=== PATIENT | female | born 1950 | race Caucasian/White ===

== ENCOUNTER → 2017-04-25 | Day surgery (SDC) | payer BC ==
[2017-04-24 16:34] VITALS: BMI 41.5
[~2017-04-25] MED LIST: PROPOFOL 0 ML ONE; PROPOFOL 200 MG/20 ML VIAL ONE
[2017-04-25 11:09] LABS: Anion Gap 11 mmol/L (10-20); BUN (Urea Nitrogen) 28 mg/dL (9.8-20.1); Calc. Creatinine Clearance 56 mL/min (70-130); Carbon Dioxide 26 mmol/L (23-31); Chloride 103 mmol/L (98-107); Estimated GFR-MDRD 34; Glucose 99 mg/dL (80-115); Potassium 4.2 mmol/L (3.5-5.1); Sodium 136 mmol/L (136-145)
--- NOTE | 2017-04-25 22:32 | ECHO ---
HISTORY: This is a 66-year-old woman with aortic regurgitation. DESCRIPTION OF PROCEDURE: The patient taken to the PACU. The patient is sedated by anesthesiology. Transesophageal probe was pl aced in the distal esophagus and stomach. Images were obtained. Transesophageal probe removed. FINDINGS: 1. There is a mild decrease in left ventricular systolic function. 2. The left ventricle is moderately dilated. 3. Left atrial enlargement. 4. The aortic valve leaflets have a mass suggestive of a vegetation noted to the leaflets. 5. Severe aortic regurgitation. 6. Mild mitral regurgitation. 7. Mild tricuspid regurgitation. 8. Atherosclerotic debris in the descending aorta. IMPRESSION: Severe aortic regurgitation with a mass noted attached aortic valve leaflets suggestive of a vegetat ion.
== END ==
LOC: SDC 07:46
PROVIDERS: ATTEND Internal Medicine Cardiovascular Disease
DX: I48.0 Paroxysmal atrial fibrillation (principal); I08.3 Combined rheumatic disorders of mitral, aortic and tricuspid valves; C85.10 Unspecified B-cell lymphoma, unspecified site; G40.89 Other seizures; D61.818 Other pancytopenia; K21.9 Gastro-esophageal reflux disease without esophagitis; I11.9 Hypertensive heart disease without heart failure; Z79.82 Long term (current) use of aspirin; Z79.899 Other long term (current) drug therapy; Z88.4 Allergy status to anesthetic agent; Z88.1 Allergy status to other antibiotic agents; Z88.0 Allergy status to penicillin; Z88.8 Allergy status to other drugs, medicaments and biological substances; Z95.828 Presence of other vascular implants and grafts; Z90.89 Acquired absence of other organs; Z98.890 Other specified postprocedural states
CPT/HCPCS: 36415; 80048; 93312; J2704

== ENCOUNTER 2017-06-24 11:58 | Outpatient (CLI) | payer BC ==
--- NOTE | 2017-06-24 13:03 | RAD ---
TWO VIEWS CHEST: 06/24/2017 PROVIDED CLINICAL HISTORY: Dyspnea. COMPARISON: 12/25/2016 FINDINGS: The cardiac silhouette remains enlarged. Right-sided implanted port is again seen in a similar posit ion. Median sternotomy changes are now seen. Prosthetic cardiac valve now demonstrated. No focal c onsolidation evident. Blunting of the right costophrenic angle persists. No evidence for pneumothor ax. IMPRESSION: Stable cardiomegaly and blunting of the right costophrenic angle. POS: [facility]
== END 2017-06-24 11:59 | disposition home or self-care (01) ==
LOC: RAD 11:58
PROVIDERS: ATTEND Internal Medicine
DX: R06.00 Dyspnea, unspecified (principal); I51.7 Cardiomegaly
CPT/HCPCS: 71046

== ENCOUNTER 2017-08-20 15:12 | Emergency (ER) | payer BC, SELFPAY ==
--- NOTE | 2017-08-20 16:27 | CT ---
CT OF HEAD NONCONTRAST: Indication: Post-traumatic injury. Pain. FINDINGS: Reference is made to 10-15-15. There is redemonstration of right frontal approach ventriculostomy with tip terminating at the left f rontal horn. Cavitary encephalomalacia left frontal lobe with interspersed calcific density is stable . There is ex vacuo dilatation within the ventricular system. No acute intracranial hemorrhage or mas s effect. Craniotomy at the chelsi frontal parietal region is again seen. Vonda hole of the left frontal parietal region remains. There is scattered hypoattenuation of the bilateral cerebral white matter. IMPRESSION: 1. No acute intracranial hemorrhage or mass effect. 2. Bilateral periventricular white matter hypoattenuating regions are present. These are progressed f rom prior exam and may relate to interval microvascular ischemic disease. 3. Additional details are discussed above. POS: [facility]
[2017-08-20 16:37] LABS: Hemoglobin 11.6 g/dL (12.0-16.0); Mean Corpuscular HGB CONC 33.9 g/dL (32.0-36.0); Mean Corpuscular Hemoglobin 33.6 pg (27.0-31.0); Mean Corpuscular Volume 99.2 fl (81.0-99.0); Mean Platelet Volume 9.1 fL (7.4-10.4); Platelet Count 67 thou/uL (130-400); RBC Distribution Width 15.1 % (11.5-14.5); Red Blood Cell (RBC) Count 3.46 mill/uL (4.20-5.40); White Blood Cell (WBC) Count 3.3 thou/uL (4.8-10.8)
[2017-08-20 17:00] LABS: Anisocytosis SLIGHT = 6-15 cells (100X) (0-5/hpf); Band 27 % (5-11); Lymphocytes 5 % (21-51); MDiff Complete? YES; Monocytes 12 % (0-10); Myelocyte 2 % (0-0); Neutrophil 51 % (42-75); PLT Morphology Comment Appears Decreased; Polychromasia SLIGHT = 2-3 cells (100X) (0-2/hpf); Reactive Lymphocytes 2 % (0-10)
== END 2017-08-20 17:07 | disposition home or self-care (01) ==
LOC: ERS 15:12
DX: S06.9X9A Unspecified intracranial injury with loss of consciousness of unspecified duration, initial encounter (principal); S16.1XXA Strain of muscle, fascia and tendon at neck level, initial encounter; D69.6 Thrombocytopenia, unspecified; M19.90 Unspecified osteoarthritis, unspecified site; K21.9 Gastro-esophageal reflux disease without esophagitis; I10 Essential (primary) hypertension; V43.52XA Car driver injured in collision with other type car in traffic accident, initial encounter
CPT/HCPCS: 36415; 70450; 85025; 93005

== ENCOUNTER 2017-12-30 09:51 | Outpatient (CLI) | payer MEDICARE, BC ==
--- NOTE | 2017-12-30 13:04 | RAD ---
TWO VIEWS CHEST: DATE: 12/30/17. PROVIDED CLINICAL HISTORY: Dyspnea. FINDINGS: Comparison 06/24/17. Cardiac and mediastinal silhouette is unchanged in appearance. Median sternotomy changes and right-sided implanted port are redemonstrated. No focal consolidation, pleural fluid, o r pneumothorax apparent. Prosthetic cardiac valve is redemonstrated. IMPRESSION: Stable radiographic appearance of the chest. POS: [facility]
== END 2017-12-30 09:52 | disposition home or self-care (01) ==
LOC: BICBD 09:51 → RAD 09:52
PROVIDERS: ATTEND Internal Medicine
DX: R06.00 Dyspnea, unspecified (principal)
CPT/HCPCS: 71046

== ENCOUNTER 2018-04-05 16:31 | Inpatient (IN) | payer MEDICARE, BC ==
[2018-04-05 17:13] LABS: #Lymphocytes 0.5 thou/uL (1.20-3.40); #Monocytes 0.3 thou/uL (0.11-0.59); #Neutrophils 4.8 thou/uL (1.40-6.50); %Basophils 0.4 % (0.0-1.0); %Eosinophils 0.5 % (0.0-10.0); %Lymphocytes 8.3 % (21.0-51.0); %Monocytes 5.4 % (0.0-10.0); %Neutrophils 85.4 % (42.0-75.0); Hemoglobin 12.4 g/dL (12.0-16.0); Mean Corpuscular HGB CONC 33.2 g/dL (32.0-36.0); Mean Corpuscular Hemoglobin 31.6 pg (27.0-31.0); Mean Corpuscular Volume 95.1 fL (78.0-98.0); Mean Platelet Volume 10.6 fL (7.4-10.4); Platelet Count 72 thou/uL (130-400); RBC Distribution Width 13.1 % (11.5-14.5); Red Blood Cell (RBC) Count 3.92 mill/uL (4.20-5.40); White Blood Cell (WBC) Count 5.6 thou/uL (4.8-10.8)
[2018-04-05] MEDS ORDERED: Magnesium 2 GM/50 ML BAG (IN WATER) ONE (17:20)
[2018-04-05 17:28] LABS: ALT (SGPT) 9 U/L (8-55); AST (SGOT) 13 U/L (5-34); Albumin 3.9 g/dL (3.4-4.8); Alkaline Phosphatase 74 U/L (40-150); Anion Gap 18 mmol/L (10-20); BUN (Urea Nitrogen) 52 mg/dL (9.8-20.1); Bilirubin, Total 0.5 mg/dL (0.2-1.2); CK (CPK) 65 U/L (29-168); Calc. Creatinine Clearance 0 mL/min (70-130); Calcium 9.1 mg/dL (7.8-10.44); Carbon Dioxide 20 mmol/L (23-31); Chloride 97 mmol/L (98-107); Estimated GFR-MDRD 22; Globulin 4.1 g/dL (2.4-3.5); Glucose 200 mg/dL (80-115); Lipase 36 U/L (8-78); Potassium 4.1 mmol/L (3.5-5.1); Sodium 131 mmol/L (136-145)
[2018-04-05] MEDS ORDERED: Digoxin 0.5 MG/2 ML AMP ONE (17:32)
[2018-04-05] MEDS ORDERED: Furosemide 40 MG/4 ML VIAL ONE (17:49)
[2018-04-05 17:57] LABS: CKMB 5.4 ng/mL (0-6.6)
--- NOTE | 2018-04-05 18:06 | RAD ---
PORTABLE CHEST: History: Flu symptoms. Sinus infection. Weakness. Comparison: 12-30-17 FINDINGS: Bilateral pleural effusions have increased in size since the prior study. There is cardiomegaly with mild vascular congestion. Bibasilar atelectasis. Mediport catheter is unchanged with post op sternoto my changes again noted. IMPRESSION: Enlarging bilateral effusions since prior exam with mild vascular congestion. Bibasilar atelectasis o r infiltrates, more prominent on the right. POS: [facility]
[2018-04-05] MEDS ORDERED: Enoxaparin Sodium 100 MG/ML SYRINGE ONE (18:56)
[2018-04-05] MEDS ORDERED: DOBUTamine 500 mg/250 ml 250 ML ONE (18:56)
[2018-04-05] MEDS ORDERED: Acetaminophen 500 MG TAB ONE (19:02)
[2018-04-05] MEDS ORDERED: Clindamycin/D5W 900 mg/50 ml Premix Bag ONE (19:23)
[2018-04-05 19:39] LABS: INR-International Normal Ratio 1.3; PTT 41.1 SEC (22.9-36.1); Prothrombin Time 15.9 SEC (12.0-14.7)
[2018-04-05] MEDS ORDERED: Amiodarone 150 MG/3 ML VIAL ONE (19:40)
[2018-04-05] MEDS ORDERED: Amiodarone 450 MG, Admixture Fee 1 EACH in Dextrose 5% in Water 250 ML IVPB SCH (20:00)
[2018-04-05 20:37] LABS: Lactic Acid 1.8 mmol/L (0.5-2.2)
[2018-04-05 22:09] LABS: Troponin I 0.371 ng/mL (< 0.028)
[2018-04-05] MEDS ORDERED: Ondansetron ODT 4 MG TAB SL PRN (23:30)
[2018-04-05] MEDS ORDERED: Ondansetron PF 4 MG/2 ML Vial IVP PRN (23:30)
[2018-04-05] MEDS: Digoxin 0.5 MG/2 ML AMP SLOW IVP SCH (23:59)
[2018-04-06 00:06] VITALS: BMI 37.1
[2018-04-06 00:22] LABS: Actual Bicarbonate (HCO3a) 21.1 mEq/L (22-28); Base Excess (BEa) -2.8 mEq/L (-2.0 to +3.0); CO2 Tension 33.8 mmHg (35.0-45.0); Calcium, Ionized 1.08 mmol/L (1.12-1.30); Carboxyhemoglobin (COHb) 1.5 gm% (0.0-3.0); Hemoglobin (Hb) 12.2 g/dL (12.0-16.0); O2 Tension (PaO2) 110.4 mmHg (> 80.0); Potassium - ABG Lab 4.37 mmol/L (3.70-5.30); pH, Arterial 7.41 (7.35-7.45)
[2018-04-06 00:23] LABS: Puncture Site RBR
[2018-04-06 01:13] LABS: Troponin I 0.526 ng/mL (< 0.028)
[2018-04-06] MEDS ORDERED: Bisacodyl 5 MG TAB PO PRN (02:52)
[2018-04-06] MEDS ORDERED: Acetaminophen 650 MG Suppository PR PRN (02:52)
[2018-04-06] MEDS ORDERED: Heparin 25,000 units/D5W 500 ML IVPB SCH (03:00)
[2018-04-06] MEDS: Heparin 10,000 UNITS/ 10 ML VIAL SLOW IVP SCH ×2 (03:38→12:55)
[2018-04-06] MEDS: Digoxin 0.5 MG/2 ML AMP SLOW IVP SCH (05:28)
[2018-04-06] MEDS: Furosemide 40 MG/4 ML VIAL SLOW IVP SCH ×2 (05:33→08:57)
[2018-04-06 05:52] LABS: #Lymphocytes 0.7 thou/uL (1.20-3.40); #Monocytes 0.5 thou/uL (0.11-0.59); #Neutrophils 3.8 thou/uL (1.40-6.50); %Basophils 0.3 % (0.0-1.0); %Eosinophils 0.7 % (0.0-10.0); %Monocytes 10.4 % (0.0-10.0); %Neutrophils 74.6 % (42.0-75.0); Hemoglobin 11.1 g/dL (12.0-16.0); Mean Corpuscular HGB CONC 32.8 g/dL (32.0-36.0); Mean Corpuscular Hemoglobin 31.2 pg (27.0-31.0); Mean Corpuscular Volume 95.3 fL (78.0-98.0); Mean Platelet Volume 10.5 fL (7.4-10.4); Platelet Count 60 thou/uL (130-400); Red Blood Cell (RBC) Count 3.56 mill/uL (4.20-5.40); White Blood Cell (WBC) Count 5.1 thou/uL (4.8-10.8)
[2018-04-06 06:07] LABS: Albumin 3.4 g/dL (3.4-4.8); Anion Gap 14 mmol/L (10-20); BUN (Urea Nitrogen) 56 mg/dL (9.8-20.1); BUN/Creatinine Ratio 27.72; Calc. Creatinine Clearance 43 mL/min (70-130); Calcium 8.7 mg/dL (7.8-10.44); Carbon Dioxide 23 mmol/L (23-31); Chloride 97 mmol/L (98-107); Digoxin 0.85 ng/mL (0.8-2.0); Estimated GFR-MDRD 25; Glucose 110 mg/dL (80-115); Magnesium 2.6 mg/dL (1.6-2.6); Phosphorus 5.6 mg/dL (2.3-4.7); Sodium 130 mmol/L (136-145)
--- NOTE | 2018-04-06 08:12 | HP ---
CHIEF COMPLAINT: Weakness and dizziness. HISTORY OF PRESENT ILLNESS: This is a 67-year-old female with past medical history of hypoglycemia, seizures, arthritis of the back, stage IV non-Hodgkin lymphoma, right breast cancer, brain tumor removal, hypertension, atrial fibrillation, presenting with shortness of breath and generalized weakness for 1 week prior to the day of admission. The patient reports having flu-like symptoms, which has been ongoing for the past 9 days. The patient stated that she went to [facility] and was discharged home on some antibiotics and the patient was diagnosed with sinusitis. The patient states that now she is coming in because she is having shortness of breath with bilateral lower extremity edema and the patient has not been feeling well. The patient stated that, in April 2016, she had a heart valve transplant and the patient has now been having irregular heart rate. Currently, the patient states that she is having severe shortness of breath, and when she moves around, her shortness of breath worsens. The patient endorses shortness of breath, bilateral lower extremity edema, and irregular heart rate. Otherwise, the patient denies any fevers, chills, nausea, vomiting, diarrhea, constipation, hematuria, dysuria, hematochezia, and melena. 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 Choe's office. The patient stated that she was not taking all her medications because she was having allergic reaction. However, Dr. Choe advised the patient on the importance of taking her medication and not being noncompliant. It seems like the patient does have some underlying noncompliance. REVIEW OF SYSTEMS: Positive for shortness of breath, generalized weakness, and bilateral lower extremity edema, otherwise as documented in the HPI, all systems were reviewed and are negative. PAST MEDICAL HISTORY: Arthritis, seizures, borderline hypoglycemia, stage IV non-Hodgkin lymphoma, right breast cancer, brain tumor removal, hypertension, and atrial fibrillation. SURGICAL HISTORY: Tumor removal from the brain in 04/1970, repeat brain surgery in 08/2009, partial thyroidectomy in 03/2008, right subclavian MediPort which was placed in 06/22/2015, biopsy of the right breast in 06/07/2015 chemotherapy and also on 06/07/2015, heart valve replacement in April of 2017. PSYCHIATRIC HISTORY: The patient has history of anxiety. SOCIAL HISTORY: The patient denies alcohol use, denies any illicit drug use, and denies any smoking history. FAMILY HISTORY: Reviewed and noncontributory to this case. ALLERGIES: AMIODARONE, AMOXICILLIN, BENADRYL, CARVEDILOL, CIPROFLOXACIN, ELIQUIS, KEPPRA, LIDOCAINE, PHENYLEPHRINE, XARELTO. CURRENT MEDICATIONS: The patient takes; 1. Topiramate 50 mg. 2. Aspirin 325 mg. 3. Lasix 40 mg. 4. Nexium. PHYSICAL EXAMINATION: VITAL SIGNS: Blood pressure is 81/61, pulse of 165, respiratory rate of 22, O2 saturation of 99 on BiPAP. GENERAL: The patient is lying in bed, very anxious, speaking in full sentences. The patient has a BiPAP on. The patient is coughing with a BiPAP on, but does not appear to be in any distress. The patient is obese. HEENT: Normocephalic, atraumatic. Pupils are equally round and reactive to light. Extraocular movements are intact. No scleral icterus. NECK: Trachea is midline. No JVD noted. No carotid bruits. No meningeal signs. Full range of motion. Mucous membranes are moist. LUNGS: The patient has clear lung sounds at the anterior lung garibay. At the posterior lung garibay, at the lower lobes bilaterally, there are some crackles that can be appreciated. CARDIAC: The patient has AFib with RVR, irregular heart rate. ABDOMEN: No peritoneal signs. Obese abdomen. Soft, nontender, nondistended. EXTREMITIES: The patient has 5/5 upper extremity strength. Good pulses in bilateral upper extremities. Lower extremities, the patient has bilateral lower extremity edema 2+ that can be appreciated and is pitting. The patient has 5/5 lower extremity strength and the patient has good pulses bilaterally. NEUROLOGIC: Cranial nerves 2 through 12 grossly intact. No neurologic deficits noted. The patient is alert and oriented x3. SKIN: Warm, dry, and intact. DIAGNOSTIC DATA: EKG shows atrial fibrillation with rapid ventricular response of 170. IMAGING STUDIES: Chest film shows bilateral pleural effusion with mild vascular congestion, which they cannot rule out infiltrates. LABORATORY DATA: WBC is 5.6, hemoglobin is 12.4, hematocrit is 37.3, platelet count is 72. PT is 15.9, INR is 1.3, PTT 41.1. ABG shows a pH of 7.4, pCO2 of 33.8, pO2 of 110. Sodium is 131, potassium is 4.1, chloride is 97, carbon dioxide of 20, anion gap of 18, BUN is 52, creatinine is 2.20, GFR is 22, and glucose 200. Lactic acid 1.8. Troponin is 0.3, 0.37, 0.5 respectively. BNP is 4215.4. ASSESSMENT AND PLAN: This is a 67-year-old female, being admitted for: 1. Shortness of breath, likely due to congestive heart failure exacerbation. At this point, we have consulted Cardiology. We have ordered an echo. We will follow up on echo. We have given the patient Lasix x1. We will continue the patient on BiPAP and we will continue to monitor the patient's oxygenation. 2. Acute on chronic kidney injury, stage 4. At this point, we have consulted Nephrology. We will follow up with Nephrology regarding their recommendations. Renal panel has been ordered. Currently, since the patient is in acute exacerbation of congestive heart failure, the patient has been given a dose of Lasix. 3. Noncompliance. The patient has been noncompliant with her medications. The patient states that she has a lot of history with allergies with all her medications. At this point, I have explained to the patient that she needs her medication and she does not have to stop taking her medication because she is not allergic to the medications. The patient has agreed somewhat to take the medications. At this point, we will continue the patient on current management. 4. Atrial fibrillation with rapid ventricular response. The patient is on amiodarone, but the patient's blood pressure is currently running low in the 70s. We are going to discontinue amiodarone and we are going to start the patient on digoxin. We will follow up with Cardiology regarding any further recommendation. We will continue the patient on aspirin and heparin. The patient takes valsartan and sacubitril. We will start the patient on this medication. However, if the patient's blood pressure is too low, we will hold the medication at that time. 5. History of hypertension. Currently, the patient is hypotensive and patient has been admitted to the ICU. We are going to continue to monitor the patient closely. If the patient's blood pressure does not respond with treatment, we are going to get a central line and we will possibly start the patient on pressors. 6. Deep venous thrombosis and gastrointestinal prophylaxis. Critical care time was about 60 minutes. Job ID: [id number]
[2018-04-06] MEDS: Famotidine/PF 20 mg/2ml Vial SLOW IVP SCH (08:49)
[2018-04-06] MEDS: Aspirin 325 MG TAB PO SCH (08:50)
[2018-04-06] MEDS: Famotidine 20 MG TAB PO SCH (08:50)
[2018-04-06] MEDS: Topiramate 100 MG TAB PO SCH ×3 (08:51→21:52)
[2018-04-06] MEDS ORDERED: Aspirin 325 MG TAB PO SCH (09:00)
[2018-04-06] MEDS ORDERED: Sacubitril 24.5 MG/Valsartan 25.5 MG TABLET PO SCH (09:00)
[2018-04-06] MEDS: Acetaminophen 325 MG TAB PO PRN (09:03)
--- NOTE | 2018-04-06 10:31 | CON ---
DATE OF CONSULTATION: HISTORY OF PRESENT ILLNESS: She is a 67-year-old female, who presented to the hospital with shortness of breath. She now states that she has seen different doctors in the office including a duck operator and roofing sales representative, had flu-like symptoms for almost two weeks, cough, congestion followed by shortness of breath, lower extremity swelling. She can barely walk 50 feet without getting markedly dyspneic, never smoke, no prior history of TB, pneumonia, or bronchial asthma. She had history of bilateral pleural effusion, for which a thoracentesis to be done at least twice, the last one in April of this year in [place], where she had apparently an aortic valve replaced. PAST MEDICAL HISTORY: Pertinent for non-Hodgkin's lymphoma, history of hypertension, history of atrial fibrillation, history of congestive heart failure, history of apparently seizure disorder, and arthritis. PAST SURGICAL HISTORY: She has had craniotomy twice for a brain tumor, thyroid surgery, MediPort, breast biopsy, aortic valve surgery in 2018. SOCIAL HISTORY: Alcohol, none. Tobacco none. Unremarkable. FAMILY HISTORY: Unremarkable. MEDICATIONS: List of medicine from home includes; 1. Entresto one a day. 2. Aspirin 325. 3. Zonisamide 400. 4. Topiramate 100. 5. Lasix 40. 6. Nexium. ALLERGIES: MULTIPLE MEDICATIONS INCLUDING PENICILLIN, AMOXICILLIN, AMIODARONE, CIPRO, COREG, KEPPRA, LITHIUM, AND XARELTO. PHYSICAL EXAMINATION: GENERAL: On examination, she is awake, alert, and responsive. VITAL SIGNS: She was on non-invasive ventilation, which I removed. She is much better. Sats are 96% on 4 L, pulse 80, blood pressure 100/80. CHEST: Decreased breath sounds bilaterally, right greater than left. CARDIAC: Normal S1 and S2. No gallops. ABDOMEN: Soft. No masses. EXTREMITIES: Trace edema. NEUROLOGIC: She is awake, alert, and responsive. LABORATORY DATA: PO2 is 110, pCO2 of . White count 5000, H and H are 11 and 33, and platelet count is 60,000. IMPRESSION: 1. Bilateral pleural effusion, congestive heart failure. 2. Recent aortic valve surgery. 3. Severe thrombocytopenia. 4. History of lymphoma. 5. Multiple allergies. PLAN: Awaiting input from Cardiology. I see no sign of infection at this stage. PT supportive care. So far, all cultures are negative. This consultation note 70 minutes, of which 50% direct patient care. Job ID: [id number]
--- NOTE | 2018-04-06 16:42 | PDOC.PN ---
- Subjective Encounter Start Date: 04/06/18 Encounter Start Time: 09:20 Pt seen for followup re: CHF exacerbation. Denies chest pain. - Objective Resuscitation Status - Order Detail: 04/06/18 02:52 Resuscitation Status Routine Resuscitation Status: FULL: Full Resuscitation MAR Reviewed: Yes Vital Signs & Weight: Vital Signs (12 hours) Temp Pulse Resp BP Pulse Ox 04/06/18 15:49 96.7 F L 109 H 29 H 92/66 97 04/06/18 11:20 96.7 F L 108 H 27 H 120/70 96 04/06/18 10:21 93 L 04/06/18 08:00 94 L 04/06/18 07:28 96.8 F L 122 H 31 H 101/63 97 04/06/18 05:28 121 H Weight Weight 216 lb 12.8 oz I&O: 04/05/18 04/06/18 04/07/18 06:59 06:59 06:59 Intake Total 18 Output Total 225 Balance -207 Result Diagrams: 04/06/18 05:16 04/06/18 05:16 EKG Reviewed by me: Yes (Tele: NSR) Phys Exam - Physical Examination Obese HEENT: moist MMs, sclera anicteric, oral pharynx no lesions, 2+ tonsils Neck: no nodes, supple, full ROM JVD Hang crackles Cardiovascular: RRR, no rub S1, S2 Gastrointestinal: soft, non-tender, no distention, positive bowel sounds Neurological: moves all 4 limbs Psychiatric: normal affect, A&O x 3 Dx/Plan (1) Acute on chronic diastolic heart failure Code(s): I50.33 - ACUTE ON CHRONIC DIASTOLIC (CONGESTIVE) HEART FAILURE Status : Acute Comment: await 2D echo, continue IV furosemide (2) Acute worsening of stage 3 chronic kidney disease Code(s): N18.3 - CHRONIC KIDNEY DISEASE, STAGE 3 (MODERATE) Status: Acute Comment: follow creatinine, lytes (3) Hyponatremia Code(s): E87.1 - HYPO-OSMOLALITY AND HYPONATREMIA Status: Acute Comment: mild, likely asymptomatic (4) Thrombocytopenia Code(s): D69.6 - THROMBOCYTOPENIA, UNSPECIFIED Status: Chronic Comment: follow platelet counts - Plan * . Review of Systems - Review of Systems Constitutional: negative: fever, chills, sweats, weakness, malaise Respiratory: Shortness of Breath, SOB with Excertion. negative: Cough, Pleuritic Pain, Wheezing Cardiovascular: orthopnea. negative: chest pain, palpitations, paroxysmal nocturnal dyspnea, edema, light headedness Gastrointestinal: negative: Nausea, Vomiting, Abdominal Pain, Diarrhea, Constipation, Melena, Hematochezia Genitourinary: negative: Dysuria, Frequency, Incontinence, Hematuria, Retention Skin: negative: Rash, Lesions, Adis, Bruising - Medications/Allergies Allergies/Adverse Reactions: Allergies Allergy/AdvReac Type Severity Reaction Status Date / Time amiodarone Allergy Verified 04/06/18 00:35 amitriptyline [From Elavil] Allergy "MAKES ME Verified 04/06/18 00:35 SWELL" amoxicillin Allergy Rash Verified 04/06/18 00:35 apixaban [From Eliquis] Allergy Verified 04/06/18 00:35 carvedilol [From Coreg] Allergy Verified 04/06/18 00:35 ciprofloxacin Allergy seizure Verified 04/06/18 00:35 levetiracetam [From Keppra] Allergy Verified 04/06/18 00:35 lidocaine Allergy strokelike Verified 04/06/18 00:35 symptom lithium Allergy "MAKES ME Verified 04/06/18 00:35 SWELL" Penicillins Allergy Rash Verified 04/06/18 00:35 phenylephrine Allergy strokelike Verified 04/06/18 00:35 symptom rivaroxaban [From Xarelto] Allergy Verified 04/06/18 00:35 diphenhydramine HCl AdvReac severe Verified 04/06/18 00:35 [From Benadryl] headache/code green Medications: Current Medications Acetaminophen (Tylenol) 650 mg PO Q4H PRN PRN Reason: Headache/Fever/Mild Pain (1-3) Last Admin: 04/06/18 09:03 Dose: 650 mg Acetaminophen (Tylenol) 650 mg MD Q4H PRN PRN Reason: Headache/Fever/Mild Pain (1-3) Aspirin (Aspirin) 325 mg PO DAILY [facility] Last Admin: 04/06/18 08:50 Dose: 325 mg Bisacodyl (Dulcolax) 10 mg PO DAILYPRN PRN PRN Reason: Constipation Famotidine (Pepcid) 20 mg SLOW IVP QAM [facility] Last Admin: 04/06/18 08:49 Dose: Not Given Famotidine (Pepcid) 20 mg PO QAM [facility] Last Admin: 04/06/18 08:50 Dose: 20 mg Guaifenesin/Dextromethorphan (Robitussin Dm) 15 ml PO Q4H PRN PRN Reason: Cough Senna/Docusate Sodium (Senokot S) 2 tab PO BID PRN PRN Reason: Constipation Sodium Chloride (Flush - Normal Saline) 10 ml IVF Q12HR [facility] Last Admin: 04/06/18 08:51 Dose: 10 ml Sodium Chloride (Flush - Normal Saline) 10 ml IVF PRN PRN PRN Reason: Saline Flush Topiramate (Topamax) 100 mg PO TID [facility] Last Admin: 04/06/18 14:36 Dose: 100 mg Zonisamide (Zonegran) 400 mg PO HS [facility]
--- NOTE | 2018-04-06 20:29 | CON ---
DATE OF CONSULTATION: NEPHROLOGY CONSULTATION REASON FOR CONSULTATION: Elevated creatinine. HISTORY OF PRESENT ILLNESS: This is a 67-year-old female with a past medical history significant for hypertension, who presented to the hospital with weakness and dizziness. The patient's creatinine was 2.2 and improved to 2.0. Creatinine was 1.2 in December. The patient has congestive heart failure and history of non-Hodgkin lymphoma. The patient denies no headache, numbness, tingling or weakness. Denies any nausea, vomiting, or chest pain. The patient is making urine. PAST MEDICAL HISTORY: Arthritis, seizures, hypocalcemia, stage IV non-Hodgkin lymphoma, right breast cancer, brain tumor removal, atrial fibrillation, brain surgery, thyroidectomy, subclavian Mediport, biopsy of the right breast, chemotherapy, and aortic valve replacement. SOCIAL: No alcohol or drug use. FAMILY HISTORY: Negative for ESRD. ALLERGIES: REVIEWED MEDICATIONS: Home medications list reviewed. REVIEW OF SYSTEMS: Fifteen-point review of systems was performed and negative except for positives noted above. NECK: No swelling or lumps. NOSE: No epistaxis or discharge. EYES: No diplopia or pain. MUSCULOSKELETAL: No joint pain. NEUROPSYCHIATRIC SYSTEMS: No suicidal ideation. No ideation. SKIN: Denies any rash or ulcer. CONSTITUTIONAL: No fever or chills. OBJECTIVE: GENERAL: The patient is awake, alert, in no acute distress. VITAL SIGNS: Afebrile, pulse 108, breathing 16, blood pressure 120/70. GENERAL APPEARANCE AND MENTAL STATUS: Fair. HEAD/NECK: Normocephalic. Atraumatic. EYES: EOMI. No deformity. EARS: Clear. No ulcers. NOSE: Intact. No lesions. MOUTH: Clear. No discharge. THROAT: Clear. No exudate. LUNGS: Clear. No crackles. CARDIAC: S1, S2. No rub. ABDOMEN: Benign. Bowel sounds positive. GENITALIA/RECTUM: Fernando absent. BACK/EXTREMITIES: Edema 0+. NEUROLOGICAL: Alert and motor intact. LABORATORY DATA: Labs shows creatinine 2.0. ASSESSMENT AND PLAN: 1. Acute kidney injury with chronic kidney disease, improved. 2. Hypertension, stable. 3. Anemia, stable. 4. Chronic kidney disease due to hypertension as well as acute kidney injury, true congestive heart failure. No indication for dialysis. Job ID: [id number] [facility]
[2018-04-06] MEDS: Zonisamide 100 MG CAP PO SCH (21:52)
--- NOTE | 2018-04-06 23:32 | CON ---
DATE OF CONSULTATION: HISTORY OF PRESENT ILLNESS: Juan Ramsey is a 67-year-old white female with a complicated past medical history. She has been cared for in the past by Dr. Zen Bird and Dr. Boubacar Choe with Dr. Choe wishing to sever the relationship due to patient's noncompliance with her medications. She has had atrial fibrillation in the past, was on amiodarone several years ago. Most recently in April 2017, she underwent aortic valve replacement at [facility] in [place] for severe aortic insufficiency. She does not think that there were any bypasses performed. She has not been on amiodarone since way before her aortic valve replacement. She states that she stopped taking it due to her joints hurting. At the present time, she is taking Entresto and furosemide. She now presents complaining of severe shortness of breath, which is increased with any activity. She denies any significant chest pain. She also has had significant peripheral edema over the last several weeks. PAST MEDICAL HISTORY: Remarkable for stage IV non-Hodgkin's lymphoma, right breast cancer, brain tumor removal, hypertension, and seizures. 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 MEDICATIONS: At home include, 1. Entresto 24/26 b.i.d. 2. Topiramate 100 mg t.i.d. 3. Zonisamide 400 at bedtime. 4. Aspirin 325 daily. 5. Vibramycin 100 mg b.i.d. 6. Nexium daily. 7. Furosemide 40 mg daily. ALLERGIES: AMIODARONE, AMITRIPTYLINE, AMOXICILLIN, ELIQUIS, CARVEDILOL, CIPROFLOXACIN, KEPPRA, LIDOCAINE, LITHIUM, PENICILLIN, PHENYLEPHRINE, XARELTO, BENADRYL. SOCIAL HISTORY: She does not smoke or drink. FAMILY HISTORY: Negative for coronary artery disease. REVIEW OF SYSTEMS: 12-point review of systems unremarkable except as noted above. PHYSICAL EXAMINATION: VITAL SIGNS: Blood pressure 92/66, pulse of 109. HEENT: PERRL. NECK: Supple. CHEST: Reveals decreased breath sounds at the bases and some crackles in the mid lung garibay. CARDIOVASCULAR: S1 and S2 normal without any S3 or S4. There is a 1/6 systolic murmur. ABDOMEN: Obese. Normal bowel sounds. No tenderness. EXTREMITIES: Revealed 2+ pretibial edema. NEUROLOGIC: Grossly intact. SKIN: Warm and dry. LABORATORY DATA: EKG reveals atrial fibrillation with rapid ventricular response of 149 per minute and poor R-wave progression in V1 to V3. Hemoglobin 11.1, hematocrit 32.9, white count 5100, platelets 60,000. PH 7.41, pCO2 of 33.8, PO2 of 110.4. Sodium 130, potassium 4.0, chloride 97, carbon dioxide 23, BUN 56, creatinine 2.02 (creatinine was 1.08 in October 2017). Troponin I up to 0.526. BNP 4215.4. TSH is normal. IMPRESSION: 1. Atrial fibrillation with fast ventricular response with rate of 149 per minutes upon arrival. 2. Unknown left ventricular function at this time after aortic valve replacement. 3. Status post bioprosthetic aortic valve replacement. 4. History of resection of brain tumor x2. 5. Stage IV non-Hodgkin's lymphoma. 6. Right breast cancer. 7. Hypertension. 8. Atrial fibrillation at this time with fast ventricular response. 9. History of seizures. 10. Anxiety. 11. Thrombocytopenia. PLAN: Long-term anticoagulation probably is not indicated in this lady with brain surgery x2 and thrombocytopenia. Platelet count will need to be watched closely. I feel that her best option will be rate control and she will be started on digoxin and I agree with this approach. With her worsening renal function, Entresto will be discontinued at this time. Echocardiogram will be performed to reassess left ventricular function. Her renal function needs to be watched closely. Job ID: [id number] [facility]
[2018-04-07] MEDS: Acetaminophen 325 MG TAB PO PRN ×2 (00:24→16:28)
[2018-04-07] MEDS: Calcium Carbonate 500 MG ChewTAB PO PRN (03:34)
[2018-04-07 05:00] LABS: #Lymphocytes 0.4 thou/uL (1.20-3.40); #Monocytes 0.5 thou/uL (0.11-0.59); #Neutrophils 4.9 thou/uL (1.40-6.50); %Basophils 0.1 % (0.0-1.0); %Eosinophils 0.6 % (0.0-10.0); %Lymphocytes 6.6 % (21.0-51.0); %Monocytes 8.8 % (0.0-10.0); %Neutrophils 83.9 % (42.0-75.0); Hemoglobin 11.8 g/dL (12.0-16.0); Mean Corpuscular HGB CONC 32.7 g/dL (32.0-36.0); Mean Corpuscular Hemoglobin 31.3 pg (27.0-31.0); Mean Corpuscular Volume 95.7 fL (78.0-98.0); Mean Platelet Volume 9.4 fL (7.4-10.4); Platelet Count 56 thou/uL (130-400); RBC Distribution Width 13.3 % (11.5-14.5); Red Blood Cell (RBC) Count 3.78 mill/uL (4.20-5.40); White Blood Cell (WBC) Count 5.9 thou/uL (4.8-10.8)
[2018-04-07] MEDS: Famotidine 20 MG TAB PO SCH (06:05)
--- NOTE | 2018-04-07 08:39 | RAD ---
CHEST ONE VIEW: History: CHF Comparison: 04-05-18 FINDINGS: There are layering effusions. [id number] is in similar position. Multiple midline sternotomy wir es. Mild atelectasis. No pneumothorax. Low grade edema. IMPRESSION: Similar exam of the chest. POS: [facility]
[2018-04-07] MEDS: Topiramate 100 MG TAB PO SCH ×3 (10:16→21:48)
[2018-04-07] MEDS: Aspirin 325 MG TAB PO SCH (10:16)
[2018-04-07] MEDS: Famotidine/PF 20 mg/2ml Vial SLOW IVP SCH ×2 (10:16→10:21)
[2018-04-07 11:41] LABS: Anion Gap 17 mmol/L (10-20); BUN (Urea Nitrogen) 48 mg/dL (9.8-20.1); Calc. Creatinine Clearance 49 mL/min (70-130); Calcium 8.7 mg/dL (7.8-10.44); Carbon Dioxide 20 mmol/L (23-31); Chloride 101 mmol/L (98-107); Estimated GFR-MDRD 30; Glucose 118 mg/dL (80-115); Potassium 4.4 mmol/L (3.5-5.1); Sodium 134 mmol/L (136-145)
--- NOTE | 2018-04-07 11:52 | PRG ---
DATE OF SERVICE: 04/07/2018 SUBJECTIVE: A 67-year-old female, being seen for acute kidney injury. The patient denies any nausea, vomiting, or chest pain. OBJECTIVE: CONSTITUTIONAL: The patient is awake and alert. VITAL SIGNS: Afebrile, pulse 102, breathing 16, and blood pressure GENERAL APPEARANCE AND MENTAL STATUS: Fair. HEAD/NECK: Normocephalic. Atraumatic. EYES: EOMI. No deformity. EARS: Clear. No ulcers. NOSE: Intact. No lesions. MOUTH: Clear. No discharge. THROAT: Clear. No exudate. LUNGS: Clear. No crackles. CARDIAC: S1, S2. No rub. ABDOMEN: Benign. Bowel sounds positive. GENITALIA/RECTUM: Fernando absent. BACK/EXTREMITIES: Edema 0+. NEUROLOGICAL: Alert and motor intact. SKIN: LYMPHATICS: LABORATORY DATA: Labs show hemoglobin 11.2. Creatinine is pending. ASSESSMENT AND PLAN: 1. Acute kidney injury, follow creatinine. 2. Hypertension, stable. 3. Anemia, stable. 4. Medications based on GFR as appropriate. Job ID: [id number]
[2018-04-07] MEDS: Senokot S 8.6-50 MG TAB PO PRN (12:20)
--- NOTE | 2018-04-07 14:12 | EKG ---
Test Reason : Blood Pressure : / mmHG Vent. Rate : 170 BPM Atrial Rate : 159 BPM P-R Int : 000 ms QRS Dur : 080 ms QT Int : 262 ms P-R-T Axes : 000 031 076 degrees QTc Int : 440 ms Atrial fibrillation with rapid ventricular response Anteroseptal infarct , age undetermined Abnormal ECG Confirmed by LORENA COURTNEY DO ([id number]), video news editor SHARON ZARCO ([id number]) on 04/07/2018 2:11:49 PM Referred By: Confirmed By:LORENA COURTNEY DO
--- NOTE | 2018-04-07 14:16 | EKG ---
Test Reason : Blood Pressure : / mmHG Vent. Rate : 149 BPM Atrial Rate : 111 BPM P-R Int : 000 ms QRS Dur : 080 ms QT Int : 296 ms P-R-T Axes : 000 016 094 degrees QTc Int : 466 ms Atrial fibrillation with rapid ventricular response Anterolateral infarct , age undetermined Abnormal ECG Confirmed by ELISA ALEXANDER, TIO ([id number]), editor greeting card SHARON ZARCO ([id number]) on 04/07/2018 2:15:45 PM Referred By: Confirmed By:TIO PÉREZ MD
[2018-04-07] MEDS ORDERED: Furosemide 40 MG/4 ML VIAL SLOW IVP SCH (15:15)
--- NOTE | 2018-04-07 17:05 | PRG ---
DATE OF SERVICE: 04/07/2018 SERVICE: Pulmonary Medicine. INTERVAL HISTORY: The patient is doing fine from respiratory standpoint. She is breathing comfortably today. She did not require the use of BiPAP last night. Blood pressures have been marginal, but her heart rate is still elevated. There has been no interval change to her condition. PHYSICAL EXAMINATION: VITAL SIGNS: Afebrile, pulse 130, blood pressure 118/88, respirations 18, and saturation 98% on 2 L nasal cannula. GENERAL: The patient is awake and alert, in no apparent distress. LUNGS: Excellent air entry. No prolonged expiratory phase is present. Crackles are present throughout bilateral lung garibay. HEART: Normal rate and regular. ABDOMEN: Soft, nontender, and nondistended. Bowel sounds are positive. MUSCULOSKELETAL: No cyanosis or clubbing. There is 2+ pitting in the bilateral lower extremities. NEUROLOGIC: Grossly nonfocal. LABORATORY DATA: WBC 5.9, hemoglobin 11.8, platelets 56,000. INR 1.3. pH 7.41, pCO2 of 34, pO2 of 110 on FiO2 of 28% at that time. Creatinine is downtrending to 1.72, BUN 48. Basic metabolic profile is otherwise unremarkable. TSH 0.9, troponin 0.5. BNP 4000, which is in historic high. IMAGING STUDIES: Chest x-ray demonstrates layering bilateral pleural effusions. Port-a-cath is in good position. Low lung volumes accentuate interstitial markings. ASSESSMENT: 1. Acute hypoxic respiratory failure, resolved. 2. Atrial fibrillation with rapid ventricular response. 3. Acute on chronic diastolic heart failure. 4. History of lymphoma. DISCUSSION AND PLAN: We will continue to diurese the patient's euvolemia while we work on getting her rate controlled. At this point, she is stable for transition out of the ICU to the telemetry unit. Pulmonary/Critical Care will continue to follow along for the time being. Job ID: [id number]
--- NOTE | 2018-04-07 18:14 | PDOC.PN ---
- Subjective Encounter Start Date: 04/07/18 Encounter Start Time: 11:40 Pt seen for followup re: CHF exacerbation. Feels better. - Objective Resuscitation Status - Order Detail: 04/06/18 02:52 Resuscitation Status Routine Resuscitation Status: FULL: Full Resuscitation MAR Reviewed: Yes Vital Signs & Weight: Vital Signs (12 hours) Temp Pulse Resp BP Pulse Ox 04/07/18 15:29 98.0 F 108 H 20 110/81 96 04/07/18 11:05 97.9 F 130 H 18 118/88 98 04/07/18 08:00 96 04/07/18 07:35 98.4 F 102 H 18 134/70 96 04/07/18 06:28 97 Weight Weight 211 lb 10.3 oz I&O: 04/06/18 04/07/18 04/08/18 06:59 06:59 06:59 Intake Total 18 1200 750 Output Total 225 1500 850 Balance -207 -300 -100 Result Diagrams: 04/08/18 05:11 04/08/18 05:11 Additional Labs: Accuchecks 04/06/18 23:28 POC Glucose 108 EKG Reviewed by me: Yes (Tele: broderick hamilton with [facility]) Phys Exam - Physical Examination Obese HEENT: moist MMs, sclera anicteric, oral pharynx no lesions, 2+ tonsils Neck: no nodes, no JVD, supple, full ROM Hang crackles Cardiovascular: irregular S1, S2, tachy Gastrointestinal: soft, non-tender, no distention, positive bowel sounds Musculoskeletal: edema present Neurological: moves all 4 limbs Psychiatric: normal affect, A&O x 3 Dx/Plan (1) Acute systolic CHF (congestive heart failure), NYHA class 4 Code(s): I50.21 - ACUTE SYSTOLIC (CONGESTIVE) HEART FAILURE Status: Acute Comment: continue IV furosemide. EF 15-20%. (2) Acute worsening of stage 3 chronic kidney disease Code(s): N18.3 - CHRONIC KIDNEY DISEASE, STAGE 3 (MODERATE) Status: Acute Comment: creatinine improved to 1.72 today (3) Hyponatremia Code(s): E87.1 - HYPO-OSMOLALITY AND HYPONATREMIA Status: Acute Comment: mild (4) Thrombocytopenia Code(s): D69.6 - THROMBOCYTOPENIA, UNSPECIFIED Status: Chronic Comment: follow platelet counts (5) Acute on chronic diastolic heart failure Code(s): I50.33 - ACUTE ON CHRONIC DIASTOLIC (CONGESTIVE) HEART FAILURE Status : Ruled-out - Plan * . Review of Systems - Review of Systems Constitutional: weakness. negative: fever, chills, sweats, malaise Respiratory: SOB with Excertion. negative: Cough, Shortness of Breath, Pleuritic Pain, Wheezing Cardiovascular: negative: chest pain, palpitations, orthopnea, paroxysmal nocturnal dyspnea, edema, light headedness Gastrointestinal: negative: Nausea, Vomiting, Abdominal Pain, Diarrhea, Constipation, Melena, Hematochezia Genitourinary: negative: Dysuria, Frequency, Incontinence, Hematuria, Retention Skin: negative: Rash, Lesions, Adis, Bruising - Medications/Allergies Allergies/Adverse Reactions: Allergies Allergy/AdvReac Type Severity Reaction Status Date / Time amiodarone Allergy Verified 04/06/18 00:35 amitriptyline [From Elavil] Allergy "MAKES ME Verified 04/06/18 00:35 SWELL" amoxicillin Allergy Rash Verified 04/06/18 00:35 apixaban [From Eliquis] Allergy Verified 04/06/18 00:35 carvedilol [From Coreg] Allergy Verified 04/06/18 00:35 ciprofloxacin Allergy seizure Verified 04/06/18 00:35 levetiracetam [From Keppra] Allergy Verified 04/06/18 00:35 lidocaine Allergy strokelike Verified 04/06/18 00:35 symptom lithium Allergy "MAKES ME Verified 04/06/18 00:35 SWELL" Penicillins Allergy Rash Verified 04/06/18 00:35 phenylephrine Allergy strokelike Verified 04/06/18 00:35 symptom rivaroxaban [From Xarelto] Allergy Verified 04/06/18 00:35 diphenhydramine HCl AdvReac severe Verified 04/06/18 00:35 [From Benadryl] headache/code green Medications: Current Medications Acetaminophen (Tylenol) 650 mg PO Q4H PRN PRN Reason: Headache/Fever/Mild Pain (1-3) Last Admin: 04/07/18 16:28 Dose: 650 mg Acetaminophen (Tylenol) 650 mg IN Q4H PRN PRN Reason: Headache/Fever/Mild Pain (1-3) Aspirin (Aspirin) 325 mg PO DAILY [facility] Last Admin: 04/07/18 10:16 Dose: 325 mg Bisacodyl (Dulcolax) 10 mg PO DAILYPRN PRN PRN Reason: Constipation Calcium Carbonate (Tums) 1,000 mg PO Q4H PRN PRN Reason: Heartburn or Indigestion Last Admin: 04/07/18 03:34 Dose: 1,000 mg Furosemide (Lasix) 40 mg SLOW IVP 0600 [facility] Guaifenesin/Dextromethorphan (Robitussin Dm) 15 ml PO Q4H PRN PRN Reason: Cough Senna/Docusate Sodium (Senokot S) 2 tab PO BID PRN PRN Reason: Constipation Last Admin: 04/07/18 12:20 Dose: 2 tab Sodium Chloride (Flush - Normal Saline) 10 ml IVF Q12HR [facility] Last Admin: 04/07/18 10:19 Dose: 10 ml Sodium Chloride (Flush - Normal Saline) 10 ml IVF PRN PRN PRN Reason: Saline Flush Topiramate (Topamax) 100 mg PO TID [facility] Last Admin: 04/07/18 16:16 Dose: 100 mg Zonisamide (Zonegran) 400 mg PO HS [facility] Last Admin: 04/06/18 21:52 Dose: 400 mg
[2018-04-07] MEDS: Ondansetron ODT 4 MG TAB PO PRN (20:46)
[2018-04-07] MEDS: Zonisamide 100 MG CAP PO SCH (21:48)
[2018-04-08] MEDS: Ondansetron ODT 4 MG TAB PO PRN ×3 (02:52→18:31)
[2018-04-08] MEDS: Acetaminophen 325 MG TAB PO PRN ×3 (04:26→18:31)
[2018-04-08 05:48] LABS: Anion Gap 10 mmol/L (10-20); BUN (Urea Nitrogen) 40 mg/dL (9.8-20.1); Calc. Creatinine Clearance 61 mL/min (70-130); Calcium 8.6 mg/dL (7.8-10.44); Carbon Dioxide 29 mmol/L (23-31); Chloride 101 mmol/L (98-107); Estimated GFR-MDRD 38; Glucose 118 mg/dL (80-115); Potassium 4.2 mmol/L (3.5-5.1); Sodium 136 mmol/L (136-145)
[2018-04-08 05:49] LABS: Digoxin 0.49 ng/mL (0.8-2.0)
[2018-04-08 06:01] LABS: Hemoglobin 11.6 g/dL (12.0-16.0); Lymphocytes 3 % (21-51); MDiff Complete? YES; Mean Corpuscular HGB CONC 31.9 g/dL (32.0-36.0); Mean Corpuscular Hemoglobin 31.1 pg (27.0-31.0); Mean Corpuscular Volume 97.3 fL (78.0-98.0); Mean Platelet Volume 9.7 fL (7.4-10.4); Neutrophil 97 % (42-75); PLT Morphology Comment Appears Decreased; Platelet Count 45 thou/uL (130-400); RBC Distribution Width 13.4 % (11.5-14.5); RBC Morphology Normal; Red Blood Cell (RBC) Count 3.73 mill/uL (4.20-5.40)
[2018-04-08] MEDS: Furosemide 40 MG/4 ML VIAL SLOW IVP SCH (06:26)
[2018-04-08] MEDS: Aspirin 325 MG TAB PO SCH (10:08)
[2018-04-08] MEDS: Digoxin 0.125 MG TAB PO SCH (10:08)
[2018-04-08] MEDS: Topiramate 100 MG TAB PO SCH ×3 (10:09→20:43)
--- NOTE | 2018-04-08 10:36 | PRG ---
DATE OF SERVICE: 04/08/2018 SUBJECTIVE: A 67-year-old female, being seen for acute kidney injury. The patient denies any nausea, vomiting, or chest pain. OBJECTIVE: CONSTITUTIONAL: The patient is awake and alert. VITAL SIGNS: Afebrile, pulse 76, breathing 16, blood pressure 96/69. GENERAL APPEARANCE AND MENTAL STATUS: Fair. HEAD/NECK: Normocephalic. Atraumatic. EYES: EOMI. No deformity. EARS: Clear. No ulcers. NOSE: Intact. No lesions. MOUTH: Clear. No discharge. THROAT: Clear. No exudate. LUNGS: Clear. No crackles. CARDIAC: S1, S2. No rub. ABDOMEN: Benign. Bowel sounds positive. GENITALIA/RECTUM: Fernando absent. BACK/EXTREMITIES: Edema 0+. NEUROLOGICAL: Alert and motor intact. SKIN: LYMPHATICS: LABORATORY DATA: Labs show hemoglobin 11.6. Creatinine is 1.4. ASSESSMENT AND PLAN: 1. Acute kidney injury, resolved. 2. Hypertension, stable. 3. Anemia, stable. 4. I will sign off on this patient, please reconsult as needed. Job ID: [id number]
--- NOTE | 2018-04-08 12:20 | PRG ---
DATE OF SERVICE: 04/08/2018 SERVICE: Pulmonary Medicine. INTERVAL HISTORY: The patient is breathing better. She also has improving strength. She denies any chest pain, fevers, or chills. Otherwise, there has been no interval change to her condition. OBJECTIVE: VITAL SIGNS: Afebrile currently. Pulse 116, blood pressure 104/85, respirations 18, and saturation 97% on 3 L nasal cannula. GENERAL: The patient is awake, alert, in no apparent distress. LUNGS: Decent air entry. No prolonged expiratory phase or wheezing is appreciated. Dependent crackles are noted. HEART: Tachycardic. Regular. ABDOMEN: Soft, nontender, and nondistended. Bowel sounds are positive. MUSCULOSKELETAL: No cyanosis or clubbing. She has persistent bilateral lower extremity edema present. GENITOURINARY: Fernando catheter in place. NEUROLOGIC: Grossly nonfocal. LABORATORY DATA: WBC 5.0, hemoglobin 11.6, and platelets 45,000. Creatinine 1.40 and gently downtrending, BUN 40. Basic metabolic profile is otherwise unremarkable. Digoxin level 0.49. Influenza A and B are negative, blood cultures x2 are unremarkable. IMAGING DATA: EF 15%, enlarged right ventricular cavity is noted. Left atrium is also moderately dilated. Severe aortic stenosis and moderate aortic insufficiency are noted across the bioprosthetic aortic valve. Severe tricuspid regurgitation. ASSESSMENT: 1. Acute hypoxic respiratory failure, improving. 2. Atrial fibrillation with rapid ventricular rate. 3. Acute on chronic systolic, diastolic, and valvular heart failure. 4. History of lymphoma. DISCUSSION AND PLAN: We will need to continue to work on diuresing her until she returns to euvolemia. Her primary issue here appears to be the heart. I am not convinced that there is an infection, though we will continue our antibiotics for the time being. The reduced systolic ejection fraction is a new thing. Cardiology opinion regarding this is currently pending. Pulmonary Critical Care will continue to follow along, but from my perspective, she is stable for transition to the medical unit. Job ID: [id number]
--- NOTE | 2018-04-08 13:57 | PDOC.PN ---
- Subjective Encounter Start Date: 04/08/18 Encounter Start Time: 10:40 Pt seen for followup re: CHF exacerbation. Feels slightly better. - Objective Resuscitation Status - Order Detail: 04/06/18 02:52 Resuscitation Status Routine Resuscitation Status: FULL: Full Resuscitation MAR Reviewed: Yes Vital Signs & Weight: Vital Signs (12 hours) Temp Pulse Resp BP Pulse Ox 04/08/18 10:58 97.5 F L 116 H 18 104/85 97 04/08/18 10:08 127 H 04/08/18 07:32 97.2 F L 127 H 18 119/73 96 04/08/18 06:44 97 04/08/18 04:30 97.0 F L 76 18 96/69 97 Weight Weight 210 lb 15.718 oz I&O: 04/07/18 04/08/18 04/09/18 06:59 06:59 06:59 Intake Total 1200 1035 Output Total 1500 2025 Balance -300 -990 Result Diagrams: 04/08/18 05:11 04/08/18 05:11 EKG Reviewed by me: Yes (Tele: aAshok hamilton with [facility]) Phys Exam - Physical Examination Obese HEENT: moist MMs Neck: supple Hang crackles Gastrointestinal: non-tender distended Musculoskeletal: edema present Neurological: moves all 4 limbs Psychiatric: normal affect Dx/Plan (1) Acute systolic CHF (congestive heart failure), NYHA class 4 Code(s): I50.21 - ACUTE SYSTOLIC (CONGESTIVE) HEART FAILURE Status: Acute Comment: continue IV furosemide. (2) Acute worsening of stage 3 chronic kidney disease Code(s): N18.3 - CHRONIC KIDNEY DISEASE, STAGE 3 (MODERATE) Status: Acute Comment: creatinine improved to 1.40 today (3) Hyponatremia Code(s): E87.1 - HYPO-OSMOLALITY AND HYPONATREMIA Status: Acute Comment: mild (4) Thrombocytopenia Code(s): D69.6 - THROMBOCYTOPENIA, UNSPECIFIED Status: Chronic Comment: stable (5) Acute on chronic diastolic heart failure Code(s): I50.33 - ACUTE ON CHRONIC DIASTOLIC (CONGESTIVE) HEART FAILURE Status : Ruled-out - Plan * . Review of Systems - Review of Systems Constitutional: negative: fever, chills, sweats, weakness, malaise Respiratory: SOB with Excertion. negative: Cough, Shortness of Breath, Pleuritic Pain, Wheezing Cardiovascular: orthopnea. negative: chest pain, palpitations, paroxysmal nocturnal dyspnea, edema, light headedness - Medications/Allergies Allergies/Adverse Reactions: Allergies Allergy/AdvReac Type Severity Reaction Status Date / Time amiodarone Allergy Verified 04/06/18 00:35 amitriptyline [From Elavil] Allergy "MAKES ME Verified 04/06/18 00:35 SWELL" amoxicillin Allergy Rash Verified 04/06/18 00:35 apixaban [From Eliquis] Allergy Verified 04/06/18 00:35 carvedilol [From Coreg] Allergy Verified 04/06/18 00:35 ciprofloxacin Allergy seizure Verified 04/06/18 00:35 levetiracetam [From Keppra] Allergy Verified 04/06/18 00:35 lidocaine Allergy strokelike Verified 04/06/18 00:35 symptom lithium Allergy "MAKES ME Verified 04/06/18 00:35 SWELL" Penicillins Allergy Rash Verified 04/06/18 00:35 phenylephrine Allergy strokelike Verified 04/06/18 00:35 symptom rivaroxaban [From Xarelto] Allergy Verified 04/06/18 00:35 diphenhydramine HCl AdvReac severe Verified 04/06/18 00:35 [From Benadryl] headache/code green Medications: Current Medications Acetaminophen (Tylenol) 650 mg PO Q4H PRN PRN Reason: Headache/Fever/Mild Pain (1-3) Last Admin: 04/08/18 10:09 Dose: 650 mg Acetaminophen (Tylenol) 650 mg [place] Q4H PRN PRN Reason: Headache/Fever/Mild Pain (1-3) Aspirin (Aspirin) 325 mg PO DAILY [facility] Last Admin: 04/08/18 10:08 Dose: 325 mg Bisacodyl (Dulcolax) 10 mg PO DAILYPRN PRN PRN Reason: Constipation Calcium Carbonate (Tums) 1,000 mg PO Q4H PRN PRN Reason: Heartburn or Indigestion Last Admin: 04/07/18 03:34 Dose: 1,000 mg Digoxin (Lanoxin) 0.125 mg PO DAILY [facility] Last Admin: 04/08/18 10:08 Dose: 0.125 mg Furosemide (Lasix) 40 mg SLOW IVP 0600 [facility] Last Admin: 04/08/18 06:26 Dose: 40 mg Guaifenesin/Dextromethorphan (Robitussin Dm) 15 ml PO Q4H PRN PRN Reason: Cough Ondansetron HCl (Zofran Odt) 4 mg PO Q6H PRN PRN Reason: Nausea/Vomiting Last Admin: 04/08/18 10:14 Dose: 4 mg Senna/Docusate Sodium (Senokot S) 2 tab PO BID PRN PRN Reason: Constipation Last Admin: 04/07/18 12:20 Dose: 2 tab Sodium Chloride (Flush - Normal Saline) 10 ml IVF Q12HR [facility] Last Admin: 04/08/18 10:09 Dose: 10 ml Sodium Chloride (Flush - Normal Saline) 10 ml IVF PRN PRN PRN Reason: Saline Flush Last Admin: 04/08/18 06:27 Dose: 10 ml Topiramate (Topamax) 100 mg PO TID [facility] Last Admin: 04/08/18 10:09 Dose: 100 mg Zonisamide (Zonegran) 400 mg PO HS [facility] Last Admin: 04/07/18 21:48 Dose: 400 mg
[2018-04-08] MEDS: Calcium Carbonate 500 MG ChewTAB PO PRN (15:11)
[2018-04-08] MEDS ORDERED: Digoxin 0.5 MG/2 ML AMP SLOW IVP SCH (17:15)
[2018-04-08] MEDS: Zonisamide 100 MG CAP PO SCH (20:43)
[2018-04-08] MEDS: Guaifenesin DM 100-10/5 ML UDCUP PO PRN (23:21)
[2018-04-09 04:35] LABS: #Lymphocytes 0.3 thou/uL (1.20-3.40); #Monocytes 0.5 thou/uL (0.11-0.59); #Neutrophils 4.6 thou/uL (1.40-6.50); %Eosinophils 0.4 % (0.0-10.0); %Lymphocytes 5.2 % (21.0-51.0); %Monocytes 9.2 % (0.0-10.0); %Neutrophils 85.2 % (42.0-75.0); Mean Corpuscular HGB CONC 32.5 g/dL (32.0-36.0); Mean Corpuscular Hemoglobin 31.7 pg (27.0-31.0); Mean Corpuscular Volume 97.5 fL (78.0-98.0); Mean Platelet Volume 8.9 fL (7.4-10.4); Platelet Count 39 thou/uL (130-400); RBC Distribution Width 13.4 % (11.5-14.5); White Blood Cell (WBC) Count 5.4 thou/uL (4.8-10.8)
[2018-04-09 04:51] LABS: Anion Gap 14 mmol/L (10-20); BUN (Urea Nitrogen) 34 mg/dL (9.8-20.1); Calc. Creatinine Clearance 72 mL/min (70-130); Calcium 8.9 mg/dL (7.8-10.44); Carbon Dioxide 27 mmol/L (23-31); Chloride 101 mmol/L (98-107); Digoxin 0.29 ng/mL (0.8-2.0); Estimated GFR-MDRD 46; Glucose 141 mg/dL (80-115); Potassium 4.2 mmol/L (3.5-5.1); Sodium 138 mmol/L (136-145)
[2018-04-09] MEDS: Furosemide 40 MG/4 ML VIAL SLOW IVP SCH (05:38)
[2018-04-09] MEDS: Ondansetron ODT 4 MG TAB PO PRN ×2 (06:55→13:22)
[2018-04-09] MEDS: Topiramate 100 MG TAB PO SCH ×3 (08:52→21:42)
[2018-04-09] MEDS: Digoxin 0.125 MG TAB PO SCH (08:53)
[2018-04-09] MEDS: Aspirin 325 MG TAB PO SCH (08:53)
[2018-04-09] MEDS ORDERED: Digoxin 0.5 MG/2 ML AMP SLOW IVP SCH ×2 (09:45→17:45)
[2018-04-09] MEDS ORDERED: Promethazine HCl 25 MG/ML VIAL IM/IV PRN (11:07)
--- NOTE | 2018-04-09 13:29 | PRG ---
DATE OF SERVICE: 04/09/2018 SERVICE: Pulmonary Medicine. INTERVAL HISTORY: The patient is doing fine from respiratory standpoint. She is breathing comfortably. Her strength is improving. Her biggest complaint is reflux today. She has been put on ranitidine, but she would prefer Nexium. We will give her an equivalent of that. Otherwise, there were no significant events. OBJECTIVE: VITAL SIGNS: Afebrile, pulse 108, blood pressure 109/97, respirations 31, saturations 97% on 2 L nasal cannula. GENERAL: The patient is awake, alert, in no apparent distress. LUNGS: Decent air entry. Dependent crackles are present. No prolonged expiratory phase or wheezing is appreciated. HEART: Normal rate, regular. ABDOMEN: Soft, nontender, and nondistended. Bowel sounds are positive. MUSCULOSKELETAL: No cyanosis or clubbing. There is 2+ pitting in the bilateral lower extremities. NEUROLOGIC: Grossly nonfocal. LABORATORY DATA: WBC 5.4, hemoglobin 12.0, platelets 39,000, continuing to drop off. Creatinine 1.18 and significantly improved. Basic metabolic profile is otherwise unremarkable. Influenza A and B, blood cultures x2 are unremarkable. ASSESSMENT: 1. Acute hypoxic respiratory failure, improving. 2. Atrial fibrillation with rapid ventricular response. 3. Acute on chronic systolic, diastolic, and valvular heart failure. 4. History of lymphoma. DISCUSSION AND PLAN: The patient will be diuresed until she returns to euvolemia. We will restart her Nexium and interrupt the ranitidine. At this point, she is stable for transition to the telemetry unit. Pulmonary Critical Care will continue to follow if she remains in this location. Job ID: [id number]
[2018-04-09] MEDS ORDERED: Furosemide 40 MG/4 ML VIAL SLOW IVP SCH (14:00)
--- NOTE | 2018-04-09 16:41 | PDOC.PN ---
- Subjective Encounter Start Date: 04/09/18 Encounter Start Time: 11:00 Pt seen for followup re: systolic CHF exacerbation. Denies chest pain. SOBOE+. - Objective Resuscitation Status - Order Detail: 04/06/18 02:52 Resuscitation Status Routine Resuscitation Status: FULL: Full Resuscitation MAR Reviewed: Yes Vital Signs & Weight: Vital Signs (12 hours) Temp Pulse Resp BP Pulse Ox 04/09/18 15:45 98.0 F 95 16 106/71 96 04/09/18 13:40 24 H 04/09/18 11:25 98.4 F 108 H 109/97 H 97 04/09/18 10:55 119 H 04/09/18 07:33 98.3 F 119 H 24 H 110/87 96 04/09/18 07:25 96 Weight Weight 209 lb 14.081 oz I&O: 04/08/18 04/09/18 04/10/18 06:59 06:59 06:59 Intake Total 1035 885 Output Total 20245 1999 Balance -990 -490 -1999 Result Diagrams: 04/09/18 04:16 04/09/18 04:16 EKG Reviewed by me: Yes (Tele: broderick hamilton) Phys Exam - Physical Examination Constitutional: NAD HEENT: moist MMs Neck: supple Hang crackles Cardiovascular: irregular Gastrointestinal: soft Neurological: moves all 4 limbs Psychiatric: normal affect Dx/Plan (1) Acute systolic CHF (congestive heart failure), NYHA class 4 Code(s): I50.21 - ACUTE SYSTOLIC (CONGESTIVE) HEART FAILURE Status: Acute Comment: on IV furosemide. (2) Acute worsening of stage 3 chronic kidney disease Code(s): N18.3 - CHRONIC KIDNEY DISEASE, STAGE 3 (MODERATE) Status: Acute Comment: creatinine improved to 1.18 today (3) Thrombocytopenia Code(s): D69.6 - THROMBOCYTOPENIA, UNSPECIFIED Status: Chronic Comment: Plt 39 K today (4) Acute on chronic diastolic heart failure Code(s): I50.33 - ACUTE ON CHRONIC DIASTOLIC (CONGESTIVE) HEART FAILURE Status : Ruled-out (5) Hyponatremia Code(s): E87.1 - HYPO-OSMOLALITY AND HYPONATREMIA Status: Resolved - Plan * . Review of Systems - Review of Systems Respiratory: SOB with Excertion. negative: Cough, Shortness of Breath, Pleuritic Pain, Wheezing Cardiovascular: negative: chest pain, palpitations, orthopnea, paroxysmal nocturnal dyspnea, edema, light headedness - Medications/Allergies Allergies/Adverse Reactions: Allergies Allergy/AdvReac Type Severity Reaction Status Date / Time amiodarone Allergy Verified 04/06/18 00:35 amitriptyline [From Elavil] Allergy "MAKES ME Verified 04/06/18 00:35 SWELL" amoxicillin Allergy Rash Verified 04/06/18 00:35 apixaban [From Eliquis] Allergy Verified 04/06/18 00:35 carvedilol [From Coreg] Allergy Verified 04/06/18 00:35 ciprofloxacin Allergy seizure Verified 04/06/18 00:35 levetiracetam [From Keppra] Allergy Verified 04/06/18 00:35 lidocaine Allergy strokelike Verified 04/06/18 00:35 symptom lithium Allergy "MAKES ME Verified 04/06/18 00:35 SWELL" Penicillins Allergy Rash Verified 04/06/18 00:35 phenylephrine Allergy strokelike Verified 04/06/18 00:35 symptom rivaroxaban [From Xarelto] Allergy Verified 04/06/18 00:35 diphenhydramine HCl AdvReac severe Verified 04/06/18 00:35 [From Benadryl] headache/code green Medications: Current Medications Acetaminophen (Tylenol) 650 mg PO Q4H PRN PRN Reason: Headache/Fever/Mild Pain (1-3) Last Admin: 04/08/18 18:31 Dose: 650 mg Acetaminophen (Tylenol) 650 mg [place] Q4H PRN PRN Reason: Headache/Fever/Mild Pain (1-3) Aspirin (Aspirin) 325 mg PO DAILY [facility] Last Admin: 04/09/18 08:53 Dose: 325 mg Bisacodyl (Dulcolax) 10 mg PO DAILYPRN PRN PRN Reason: Constipation Calcium Carbonate (Tums) 1,000 mg PO Q4H PRN PRN Reason: Heartburn or Indigestion Last Admin: 04/08/18 15:11 Dose: 1,000 mg Digoxin (Lanoxin) 0.125 mg PO DAILY [facility] Last Admin: 04/09/18 08:53 Dose: 0.125 mg Furosemide (Lasix) 40 mg SLOW IVP 0600 [facility] Last Admin: 04/09/18 05:38 Dose: 40 mg Guaifenesin/Dextromethorphan (Robitussin Dm) 15 ml PO Q4H PRN PRN Reason: Cough Last Admin: 04/08/18 23:21 Dose: 15 ml Ondansetron HCl (Zofran Odt) 4 mg PO Q6H PRN PRN Reason: Nausea/Vomiting Last Admin: 04/09/18 13:22 Dose: 4 mg Pantoprazole Sodium (Protonix) 40 mg PO DAILY [facility] Promethazine HCl (Phenergan) 25 mg IM/IV Q6H PRN PRN Reason: Nausea/Vomiting Last Admin: 04/09/18 12:32 Dose: 25 mg Senna/Docusate Sodium (Senokot S) 2 tab PO BID PRN PRN Reason: Constipation Last Admin: 04/07/18 12:20 Dose: 2 tab Sodium Chloride (Flush - Normal Saline) 10 ml IVF Q12HR [facility] Last Admin: 04/09/18 08:53 Dose: 10 ml Sodium Chloride (Flush - Normal Saline) 10 ml IVF PRN PRN PRN Reason: Saline Flush Last Admin: 04/09/18 05:39 Dose: 10 ml Topiramate (Topamax) 100 mg PO TID [facility] Last Admin: 04/09/18 15:18 Dose: 100 mg Zonisamide (Zonegran) 400 mg PO HS [facility] Last Admin: 04/08/18 20:43 Dose: 400 mg
[2018-04-09] MEDS: Zonisamide 100 MG CAP PO SCH (21:42)
[2018-04-09] MEDS: Guaifenesin DM 100-10/5 ML UDCUP PO PRN (23:42)
[2018-04-10 05:53] LABS: Anion Gap 15 mmol/L (10-20); BUN (Urea Nitrogen) 28 mg/dL (9.8-20.1); Calc. Creatinine Clearance 81 mL/min (70-130); Calcium 8.7 mg/dL (7.8-10.44); Carbon Dioxide 23 mmol/L (23-31); Chloride 99 mmol/L (98-107); Estimated GFR-MDRD 53; Glucose 97 mg/dL (80-115); Potassium 4.4 mmol/L (3.5-5.1); Sodium 133 mmol/L (136-145)
[2018-04-10] MEDS: Furosemide 40 MG/4 ML VIAL SLOW IVP SCH (06:11)
[2018-04-10 06:13] LABS: Digoxin 1.36 ng/mL (0.8-2.0)
[2018-04-10] MEDS: Digoxin 0.125 MG TAB PO SCH (09:35)
[2018-04-10] MEDS: Aspirin 325 MG TAB PO SCH (09:35)
[2018-04-10] MEDS: Topiramate 100 MG TAB PO SCH ×3 (09:35→20:28)
[2018-04-10] MEDS ORDERED: Metoprolol Tartrate 25 MG TAB PO SCH (09:45)
--- NOTE | 2018-04-10 14:22 | PDOC.PN ---
- Subjective Encounter Start Date: 04/10/18 Encounter Start Time: 09:40 Pt seen for followup re: systolic CHF exacerbation. Reports feeling tired. - Objective Resuscitation Status - Order Detail: 04/06/18 02:52 Resuscitation Status Routine Resuscitation Status: FULL: Full Resuscitation Vital Signs & Weight: Vital Signs (12 hours) Temp Pulse Resp BP Pulse Ox 04/10/18 10:55 98 F 99 18 124/69 98 04/10/18 09:35 92 04/10/18 07:40 98.2 F 92 18 117/68 98 04/10/18 05:20 100 04/10/18 04:00 99.4 F 86 22 H 102/68 100 Weight Weight 198 lb 12.8 oz I&O: 04/09/18 04/10/18 04/11/18 06:59 06:59 06:59 Intake Total 885 450 Output Total 1375 2700 Balance -490 -2250 Result Diagrams: 04/09/18 04:16 04/10/18 04:41 Additional Labs: Accuchecks 04/09/18 18:17 POC Glucose 96 Phys Exam - Physical Examination Obese HEENT: moist MMs Neck: supple Respiratory: clear to auscultation bilateral Cardiovascular: RRR Gastrointestinal: soft Neurological: moves all 4 limbs Psychiatric: normal affect Dx/Plan (1) Acute systolic CHF (congestive heart failure), NYHA class 4 Code(s): I50.21 - ACUTE SYSTOLIC (CONGESTIVE) HEART FAILURE Status: Acute Comment: will continue IV furosemide. (2) Thrombocytopenia Code(s): D69.6 - THROMBOCYTOPENIA, UNSPECIFIED Status: Chronic Comment: Check CBC tomorrow (3) Acute on chronic diastolic heart failure Code(s): I50.33 - ACUTE ON CHRONIC DIASTOLIC (CONGESTIVE) HEART FAILURE Status : Ruled-out (4) Hyponatremia Code(s): E87.1 - HYPO-OSMOLALITY AND HYPONATREMIA Status: Resolved (5) Acute worsening of stage 3 chronic kidney disease Code(s): N18.3 - CHRONIC KIDNEY DISEASE, STAGE 3 (MODERATE) Status: Resolved - Plan * . Review of Systems - Review of Systems Constitutional: weakness Respiratory: SOB with Excertion Cardiovascular: negative: chest pain, palpitations, orthopnea, paroxysmal nocturnal dyspnea, edema, light headedness Gastrointestinal: negative: Nausea, Vomiting, Abdominal Pain, Diarrhea, Constipation, Melena, Hematochezia - Medications/Allergies Allergies/Adverse Reactions: Allergies Allergy/AdvReac Type Severity Reaction Status Date / Time amiodarone Allergy Verified 04/06/18 00:35 amitriptyline [From Elavil] Allergy "MAKES ME Verified 04/06/18 00:35 SWELL" amoxicillin Allergy Rash Verified 04/06/18 00:35 apixaban [From Eliquis] Allergy Verified 04/06/18 00:35 carvedilol [From Coreg] Allergy Verified 04/06/18 00:35 ciprofloxacin Allergy seizure Verified 04/06/18 00:35 levetiracetam [From Keppra] Allergy Verified 04/06/18 00:35 lidocaine Allergy strokelike Verified 04/06/18 00:35 symptom lithium Allergy "MAKES ME Verified 04/06/18 00:35 SWELL" Penicillins Allergy Rash Verified 04/06/18 00:35 phenylephrine Allergy strokelike Verified 04/06/18 00:35 symptom rivaroxaban [From Xarelto] Allergy Verified 04/06/18 00:35 diphenhydramine HCl AdvReac severe Verified 04/06/18 00:35 [From Benadryl] headache/code green Medications: Current Medications Acetaminophen (Tylenol) 650 mg PO Q4H PRN PRN Reason: Headache/Fever/Mild Pain (1-3) Last Admin: 04/08/18 18:31 Dose: 650 mg Acetaminophen (Tylenol) 650 mg ID Q4H PRN PRN Reason: Headache/Fever/Mild Pain (1-3) Aspirin (Aspirin) 325 mg PO DAILY [facility] Last Admin: 04/10/18 09:35 Dose: 325 mg Bisacodyl (Dulcolax) 10 mg PO DAILYPRN PRN PRN Reason: Constipation Calcium Carbonate (Tums) 1,000 mg PO Q4H PRN PRN Reason: Heartburn or Indigestion Last Admin: 04/08/18 15:11 Dose: 1,000 mg Digoxin (Lanoxin) 0.125 mg PO DAILY [facility] Last Admin: 04/10/18 09:35 Dose: 0.125 mg Furosemide (Lasix) 40 mg SLOW IVP 0600 [facility] Last Admin: 04/10/18 06:11 Dose: 40 mg Guaifenesin/Dextromethorphan (Robitussin Dm) 15 ml PO Q4H PRN PRN Reason: Cough Last Admin: 04/09/18 23:42 Dose: 15 ml Metoprolol Tartrate (Lopressor) 12.5 mg PO BID [facility] Ondansetron HCl (Zofran Odt) 4 mg PO Q6H PRN PRN Reason: Nausea/Vomiting Last Admin: 04/09/18 13:22 Dose: 4 mg Pantoprazole Sodium (Protonix) 40 mg PO DAILY [facility] Last Admin: 04/10/18 09:35 Dose: 40 mg Promethazine HCl (Phenergan) 25 mg IM/IV Q6H PRN PRN Reason: Nausea/Vomiting Last Admin: 04/09/18 12:32 Dose: 25 mg Senna/Docusate Sodium (Senokot S) 2 tab PO BID PRN PRN Reason: Constipation Last Admin: 04/07/18 12:20 Dose: 2 tab Sodium Chloride (Flush - Normal Saline) 10 ml IVF Q12HR [facility] Last Admin: 04/10/18 09:35 Dose: 10 ml Sodium Chloride (Flush - Normal Saline) 10 ml IVF PRN PRN PRN Reason: Saline Flush Last Admin: 04/09/18 05:39 Dose: 10 ml Topiramate (Topamax) 100 mg PO TID [facility] Last Admin: 04/10/18 09:35 Dose: 100 mg Zonisamide (Zonegran) 400 mg PO HS [facility] Last Admin: 04/09/18 21:42 Dose: 400 mg
--- NOTE | 2018-04-10 15:42 | PRG ---
DATE OF SERVICE: 04/10/2018 SERVICE: Pulmonary Medicine. INTERVAL HISTORY: The patient is breathing comfortably today. She denies any cough. She does not have any dyspnea that limits her activity. Her lower extremity swelling is much improved. She denies any fevers, chills, or overnight events. PHYSICAL EXAMINATION: VITAL SIGNS: Afebrile, pulse 99, blood pressure 124/69, respirations 18, saturation 98% on 3 L nasal cannula. GENERAL: The patient is awake, alert, in no apparent distress. LUNGS: Decent air entry. Dependant crackles remain. There is no prolonged expiratory phase or wheezing appreciated. HEART: Normal rate, regular. ABDOMEN: Soft, nontender, and nondistended. Bowel sounds are positive. MUSCULOSKELETAL: No cyanosis or clubbing. No pitting in the bilateral lower extremities. NEUROLOGIC: Grossly nonfocal. LABORATORY DATA: Sodium 133. Basic metabolic profile is otherwise unremarkable with an improving creatinine of 1.04. BUN is downtrending. Influenza A and B, blood cultures x2 are unremarkable. ASSESSMENT: 1. Acute hypoxic respiratory failure, resolving. 2. Atrial fibrillation with rapid ventricular response. 3. [id number] systolic, diastolic, and valvular heart failure. 4. History of lymphoma. DISCUSSION AND PLAN: She is rapidly approaching euvolemia. At this point, she has no further requirements for inpatient Pulmonary or Critical Care opinion. This valve will need to be investigated, and possibly sorted out in the in or outpatient setting per Cardiology's opinion. She will require repeat chest x-ray in 4 to 6 weeks in the outpatient setting to verify the right lower lobe infiltrate/effusion has improved. Pulmonary Critical Care will sign off. Call with additional questions. Job ID: [id number]
[2018-04-10] MEDS: Guaifenesin DM 100-10/5 ML UDCUP PO PRN (18:22)
[2018-04-10 19:28] LABS: Troponin I 0.406 ng/mL (< 0.028)
[2018-04-10] MEDS: Metoprolol Tartrate 25 MG TAB PO SCH (20:27)
[2018-04-10] MEDS: Zonisamide 100 MG CAP PO SCH (20:28)
[2018-04-10] MEDS: Acetaminophen 325 MG TAB PO PRN (20:28)
[2018-04-10 21:31] LABS: Critical Call Chem Troponin I RESULT DECREASING; Troponin I 0.375 ng/mL (< 0.028)
[2018-04-11 01:27] LABS: Critical Call Chem Troponin I RESULT DECREASING; Troponin I 0.356 ng/mL (< 0.028)
[2018-04-11] MEDS ORDERED: Melatonin 3 MG TAB PO SCH (02:00)
[2018-04-11] MEDS: Guaifenesin DM 100-10/5 ML UDCUP PO PRN ×3 (03:32→20:52)
[2018-04-11 05:35] LABS: Digoxin 1.04 ng/mL (0.8-2.0)
[2018-04-11 05:42] LABS: Mean Corpuscular HGB CONC 31.4 g/dL (32.0-36.0); Mean Corpuscular Hemoglobin 30.4 pg (27.0-31.0); Mean Corpuscular Volume 96.9 fL (78.0-98.0); Mean Platelet Volume 11.7 fL (7.4-10.4); Platelet Count 29 thou/uL (130-400); RBC Distribution Width 13.3 % (11.5-14.5); White Blood Cell (WBC) Count 2.5 thou/uL (4.8-10.8)
[2018-04-11] MEDS: Furosemide 40 MG/4 ML VIAL SLOW IVP SCH (06:03)
[2018-04-11 06:13] LABS: #Eosinphils 0.1 thou/uL (0.0-0.7); #Lymphocytes 0.3 thou/uL (1.20-3.40); #Monocytes 0.4 thou/uL (0.11-0.59); #Neutrophils 1.8 thou/uL (1.40-6.50); %Basophils 0.2 % (0.0-1.0); %Eosinophils 2.7 % (0.0-10.0); %Lymphocytes 12.1 % (21.0-51.0); %Monocytes 14.4 % (0.0-10.0); %Neutrophils 70.6 % (42.0-75.0); Large Platelets SLIGHT; MDiff Complete? YES; PLT Morphology Comment Appears Decreased
[2018-04-11] MEDS: Simethicone Chewable 80 MG TAB PO PRN ×2 (09:08→20:56)
[2018-04-11] MEDS: Metoprolol Tartrate 25 MG TAB PO SCH ×2 (09:09→20:52)
[2018-04-11] MEDS: Aspirin 325 MG TAB PO SCH (09:11)
[2018-04-11] MEDS: Digoxin 0.125 MG TAB PO SCH (09:12)
[2018-04-11] MEDS: Topiramate 100 MG TAB PO SCH ×3 (09:12→20:51)
--- NOTE | 2018-04-11 10:45 | RAD ---
ABDOMEN TWO VIEWS: 04/11/2018 HISTORY: Abdominal distention and pain. FINDINGS: There are midline sternotomy wires present. There is hazy bibasilar increased density, right greater than left, not well characterized on this examination. This may signify bibasilar air space disease , volume loss, and/or pleural fluid. Motion artifact limits the supine imaging. There is gaseous di stention of the stomach. No convincing evidence for large or small bowel obstruction. IMPRESSION: 1. Gaseous distention of the stomach, nonspecific. 2. Increased density in both lung bases. POS: [facility]
--- NOTE | 2018-04-11 13:15 | PDOC.PN ---
- Subjective Encounter Start Date: 04/11/18 Encounter Start Time: 13:08 Patient seen and examined, no new issues or concerns, all questions answered. - Objective Resuscitation Status - Order Detail: 04/06/18 02:52 Resuscitation Status Routine Resuscitation Status: FULL: Full Resuscitation Vital Signs & Weight: Vital Signs (12 hours) Temp Pulse Resp BP Pulse Ox 04/11/18 09:28 96 04/11/18 09:12 69 04/11/18 08:55 97.9 F 89 18 119/82 96 04/11/18 04:00 98.0 F 67 20 112/64 96 Weight Weight 201 lb 9.6 oz I&O: 04/10/18 04/11/18 04/12/18 06:59 06:59 06:59 Intake Total 450 760 Output Total 2700 300 Balance -2250 460 Result Diagrams: 04/11/18 04:19 04/10/18 04:41 Phys Exam - Physical Examination Constitutional: NAD obese HEENT: PERRLA, moist MMs, sclera anicteric Neck: no nodes, no JVD, supple Respiratory: no wheezing, no rales, no rhonchi Cardiovascular: RRR, no significant murmur, no rub Gastrointestinal: no distention, positive bowel sounds Musculoskeletal: pulses present, edema present (trace) Dx/Plan (1) Acute systolic CHF (congestive heart failure), NYHA class 4 Code(s): I50.21 - ACUTE SYSTOLIC (CONGESTIVE) HEART FAILURE Status: Acute Comment: will continue IV furosemide. (2) Thrombocytopenia Code(s): D69.6 - THROMBOCYTOPENIA, UNSPECIFIED Status: Chronic Comment: Check CBC tomorrow (3) Acute worsening of stage 3 chronic kidney disease Code(s): N18.3 - CHRONIC KIDNEY DISEASE, STAGE 3 (MODERATE) Status: Resolved (4) Lumbago Code(s): M54.5 - LOW BACK PAIN Status: Acute - Plan * repeat CBC at 7pm to check platelet trend * off all anticoagulants and antiplatelets, stool is NOT black or red, will check guiac for thoroughness * patient has had a hx of low platelets in the past, as far low as 6 before, no signs of bleeding, will monitor * will consider consulting Dr. Barajas(her out patient oncologist) if platelets continue to drop * no other changes in plan of care for now, SOB is improved, tolerating diet * case and plan d/w patient at length, she understood and agreed with this plan
[2018-04-11 20:35] LABS: Band 11 % (5-11); Hemoglobin 11.6 g/dL (12.0-16.0); Lymphocytes 11 % (21-51); MDiff Complete? YES; Mean Corpuscular HGB CONC 32.6 g/dL (32.0-36.0); Mean Corpuscular Hemoglobin 31.1 pg (27.0-31.0); Mean Corpuscular Volume 95.5 fL (78.0-98.0); Mean Platelet Volume 9.3 fL (7.4-10.4); Monocytes 11 % (0-10); Neutrophil 67 % (42-75); PLT Morphology Comment Appears Decreased; Platelet Count 32 thou/uL (130-400); RBC Distribution Width 13.1 % (11.5-14.5); Red Blood Cell (RBC) Count 3.74 mill/uL (4.20-5.40); White Blood Cell (WBC) Count 3.4 thou/uL (4.8-10.8)
[2018-04-11] MEDS: Zonisamide 100 MG CAP PO SCH (20:51)
[2018-04-12 05:34] LABS: #Eosinphils 0.1 thou/uL (0.0-0.7); #Lymphocytes 0.3 thou/uL (1.20-3.40); #Monocytes 0.4 thou/uL (0.11-0.59); #Neutrophils 2.3 thou/uL (1.40-6.50); %Basophils 0.5 % (0.0-1.0); %Eosinophils 1.7 % (0.0-10.0); %Monocytes 13.9 % (0.0-10.0); %Neutrophils 74.9 % (42.0-75.0); Hemoglobin 11.4 g/dL (12.0-16.0); Mean Corpuscular HGB CONC 33.2 g/dL (32.0-36.0); Mean Corpuscular Hemoglobin 31.7 pg (27.0-31.0); Mean Corpuscular Volume 95.4 fL (78.0-98.0); Mean Platelet Volume 10.9 fL (7.4-10.4); Platelet Count 38 thou/uL (130-400); RBC Distribution Width 13.1 % (11.5-14.5); Red Blood Cell (RBC) Count 3.58 mill/uL (4.20-5.40); White Blood Cell (WBC) Count 3.1 thou/uL (4.8-10.8)
[2018-04-12 05:46] LABS: Digoxin 0.66 ng/mL (0.8-2.0)
[2018-04-12 05:48] LABS: ALT (SGPT) Less than 7 U/L (8-55); AST (SGOT) 12 U/L (5-34); Albumin 3.3 g/dL (3.4-4.8); Alkaline Phosphatase 60 U/L (40-150); Anion Gap 10 mmol/L (10-20); BUN (Urea Nitrogen) 20 mg/dL (9.8-20.1); Bilirubin, Direct 0.3 mg/dL (0.1-0.3); Bilirubin, Total 0.5 mg/dL (0.2-1.2); Calc. Creatinine Clearance 96 mL/min (70-130); Calcium 8.8 mg/dL (7.8-10.44); Carbon Dioxide 32 mmol/L (23-31); Chloride 95 mmol/L (98-107); Estimated GFR-MDRD 68; Glucose 105 mg/dL (80-115); Potassium 3.6 mmol/L (3.5-5.1); Protein, Total 6.8 g/dL (6.0-8.3); Sodium 133 mmol/L (136-145)
[2018-04-12] MEDS: Furosemide 40 MG/4 ML VIAL SLOW IVP SCH (06:05)
[2018-04-12] MEDS: Digoxin 0.125 MG TAB PO SCH (09:14)
[2018-04-12] MEDS: Simethicone Chewable 80 MG TAB PO PRN (09:15)
[2018-04-12] MEDS: Aspirin 325 MG TAB PO SCH (09:15)
[2018-04-12] MEDS: Topiramate 100 MG TAB PO SCH ×3 (09:17→21:02)
[2018-04-12] MEDS: Senokot S 8.6-50 MG TAB PO PRN (09:17)
[2018-04-12] MEDS: Guaifenesin DM 100-10/5 ML UDCUP PO PRN (09:17)
[2018-04-12] MEDS: Metoprolol Tartrate 25 MG TAB PO SCH ×2 (09:17→21:01)
[2018-04-12] MEDS: Acetaminophen 325 MG TAB PO PRN (09:25)
--- NOTE | 2018-04-12 12:45 | PDOC.PN ---
- Subjective Encounter Start Date: 04/12/18 Encounter Start Time: 12:44 Patient seen and examined, complaining of SOB and some chest discomfort. States she's ambulating around the room but isn't able to get around as she used too. No other issues or complaints, all questions answered, no family at bedsdie. - Objective Resuscitation Status - Order Detail: 04/06/18 02:52 Resuscitation Status Routine Resuscitation Status: FULL: Full Resuscitation Vital Signs & Weight: Vital Signs (12 hours) Temp Pulse Resp BP BP Pulse Ox 04/12/18 09:14 98 04/12/18 09:13 99.3 F 98 18 117/70 97 04/12/18 04:00 98.3 F 81 20 115/69 96 Weight Weight 200 lb 9.6 oz I&O: 04/11/18 04/12/18 04/13/18 06:59 06:59 06:59 Intake Total 760 1533 Output Total 300 980 Balance 460 553 Result Diagrams: 04/12/18 04:42 04/12/18 04:42 Phys Exam - Physical Examination Constitutional: NAD HEENT: PERRLA, moist MMs, sclera anicteric Neck: no nodes, no JVD, supple Respiratory: no wheezing, no rales, no rhonchi Cardiovascular: RRR, no significant murmur, no rub Gastrointestinal: soft, non-tender, no distention Musculoskeletal: pulses present, edema present (1+) Dx/Plan (1) Acute systolic CHF (congestive heart failure), NYHA class 4 Code(s): I50.21 - ACUTE SYSTOLIC (CONGESTIVE) HEART FAILURE Status: Acute Comment: will continue IV furosemide. (2) Thrombocytopenia Code(s): D69.6 - THROMBOCYTOPENIA, UNSPECIFIED Status: Chronic Comment: Check CBC tomorrow (3) Acute worsening of stage 3 chronic kidney disease Code(s): N18.3 - CHRONIC KIDNEY DISEASE, STAGE 3 (MODERATE) Status: Resolved (4) Lumbago Code(s): M54.5 - LOW BACK PAIN Status: Acute - Plan * c/o chest discomfort, will continue with diuretics for now * edema present still and she continues to have FARIA * ambulating but not well, lives alone * will trend troponins given chest discomfort, on core measures * DC plans once volume improved some more, possibly in 24-48hrs * case and plan d/w patient at length, she understood and agreed with this plan
[2018-04-12 13:48] LABS: Troponin I 0.245 ng/mL (< 0.028)
[2018-04-12] MEDS ORDERED: Furosemide 40 MG/4 ML VIAL SLOW IVP SCH (17:00)
[2018-04-12] MEDS ORDERED: Digoxin 0.125 MG TAB PO SCH (17:00)
[2018-04-12] MEDS: Zonisamide 100 MG CAP PO SCH (21:02)
[2018-04-12 21:22] LABS: Troponin I 0.227 ng/mL (< 0.028)
--- NOTE | 2018-04-12 22:17 | CON ---
DATE OF CONSULTATION: REASON FOR CONSULTATION: Thrombocytopenia. HISTORY OF PRESENT ILLNESS: Ms. 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 She has been in remission since November 2015. She presented to the emergency room with weakness and shortness of breath. She had bilateral lower extremity edema. Echocardiogram showed an EF of 15% to 20%. The patient has a history of AVR in April 2017. She is being managed by Cardiology. On admission on the , her white count was 5.6, hemoglobin 12.4 , and platelet count was 72,000. Her counts have trended downward and are currently at 38,000 platelets, white count is 3.1. The patient underwent chemotherapy treatment in 2015 with EPIC and R-CHOP. She received intrathecal methotrexate x3 doses. She has been pancytopenic since treatment with the baseline white count around 3. Her baseline platelets range from 40,000 to 60,000. She has not been on anticoagulation for her AVR or atrial fibrillation secondary to thrombocytopenia. She currently complains of shortness of breath. She has difficulty ambulating without dyspnea. She has been diuresed and given medication to control her fibrillation rate. We were asked to see the patient regarding her low platelet count. PAST MEDICAL HISTORY: 1. Stage IV diffuse large B-cell lymphoma. 2. Osteomyelitis. 3. Seizure disorder. 4. Brain tumor in 2009. 5. Gastroesophageal reflux disease. 6. Hypertension. PAST SURGICAL HISTORY: 1. Craniotomy in 1970 and 2009. 2. Thyroid surgery in 2007. 3. AVR. 4. Ommaya port placement and removal. ALLERGIES: 1. AMIODARONE. 2. AMITRIPTYLINE. 3. AMOXICILLIN. 4. APIXABAN. 5. ELIQUIS. 6. KEPPRA. 7. XARELTO. MEDICATIONS: Home medications: 1. Aspirin 325 daily. 2. Nexium daily. 3. Lasix 40 mg daily. 4. Entresto daily. 5. Topiramate t.i.d. 6. Zonisamide at bedtime. FAMILY HISTORY: Noncontributory. SOCIAL HISTORY: . No children. Lives alone. No alcohol, tobacco, or illicit drug use. REVIEW OF SYSTEMS: 12-point review of systems is negative except for that noted in HPI. PHYSICAL EXAMINATION: VITAL SIGNS: Temperature is 99.3, pulse is 98, respiratory rate is 18, BP is 117/70. She is 97% on 2 L. GENERAL: Chronically ill-appearing female, in no acute distress. HEENT: Normocephalic, atraumatic. Pupils are equal and reactive to light. NECK: Supple. CARDIOVASCULAR: Irregular rate and rhythm. LUNGS: Diminished throughout. ABDOMEN: Obese. Bowel sounds are positive. EXTREMITIES: No clubbing, cyanosis, or edema. SKIN: No rash. HEMATOLOGIC: No petechiae or purpura. NEUROLOGIC: Nonfocal. PSYCH: The patient is alert and oriented, and appropriate. LABORATORY DATA: Pertinent labs and x-rays: Current WBCs 3.1, hemoglobin 11.4, hematocrit 34.2, platelet count is 38,000, 74% neutrophils, 9% lymphocytes. Sodium 133, potassium 3.6, chloride 95, CO2 is 32, BUN is 20, creatinine is 0.84, glucose is 105, calcium is 8.8. Total bilirubin is 0.5, AST is 12, ALT is less than 7, alk phos is 60. Troponin is 0.245. Serum protein is 6.8, albumin 3.3. ASSESSMENT: 1. Stage IV diffuse large B-cell lymphoma, status post chemotherapy including adriamycin, in remission. 2. Chronic leukopenia and thrombocytopenia secondary to Stage IV diffuse large B-cell lymphoma. 3. Cardiomyopathy with ejection fraction of 15% to 20%. 4. Atrial fibrillation. 5. History of aortic valve replacement. DISCUSSION: The patient's platelets have dropped during this admission and it is likely due to consumption. She has began trending upward to her baseline between 40,000 and 60,000. Her white count is at baseline. She denies any bleeding. She has been on no anticoagulation in the past due to low platelet count. Would avoid anticoagulation. No transfusion required unless she has bleeding. Other problems are being managed by Cardiology. She has a followup appointment with Dr. Barajas in April and we will recheck her labs at that time. Thank you for the consult. Job ID: [id number] [facility]
[2018-04-12] MEDS: Ondansetron ODT 4 MG TAB PO PRN (22:28)
[2018-04-13 05:39] LABS: Anion Gap 15 mmol/L (10-20); BUN (Urea Nitrogen) 18 mg/dL (9.8-20.1); Calc. Creatinine Clearance 92 mL/min (70-130); Calcium 8.6 mg/dL (7.8-10.44); Carbon Dioxide 30 mmol/L (23-31); Chloride 94 mmol/L (98-107); Estimated GFR-MDRD 64; Glucose 91 mg/dL (80-115); Potassium 3.5 mmol/L (3.5-5.1); Sodium 135 mmol/L (136-145)
[2018-04-13 05:45] LABS: Digoxin 0.72 ng/mL (0.8-2.0); Troponin I 0.204 ng/mL (< 0.028)
[2018-04-13 06:10] LABS: Band 14 % (5-11); Eosinophils 2 % (0-10); Hemoglobin 11.4 g/dL (12.0-16.0); Lymphocytes 8 % (21-51); MDiff Complete? YES; Mean Corpuscular HGB CONC 32.8 g/dL (32.0-36.0); Mean Corpuscular Hemoglobin 31.3 pg (27.0-31.0); Mean Corpuscular Volume 95.4 fL (78.0-98.0); Mean Platelet Volume 11.1 fL (7.4-10.4); Monocytes 16 % (0-10); Neutrophil 60 % (42-75); PLT Morphology Comment Appears Decreased; Platelet Count 40 thou/uL (130-400); Red Blood Cell (RBC) Count 3.64 mill/uL (4.20-5.40); White Blood Cell (WBC) Count 2.3 thou/uL (4.8-10.8)
[2018-04-13] MEDS: Guaifenesin DM 100-10/5 ML UDCUP PO PRN ×2 (09:12→16:46)
[2018-04-13] MEDS: Metoprolol Tartrate 25 MG TAB PO SCH ×2 (09:14→20:49)
[2018-04-13] MEDS: Acetaminophen 325 MG TAB PO PRN ×2 (09:14→20:50)
[2018-04-13] MEDS: Furosemide 40 MG TAB PO SCH (09:15)
[2018-04-13] MEDS: Digoxin 0.25 MG TAB PO SCH (09:15)
[2018-04-13] MEDS: Topiramate 100 MG TAB PO SCH ×3 (09:15→20:50)
[2018-04-13] MEDS: Aspirin 325 MG TAB PO SCH (09:15)
--- NOTE | 2018-04-13 13:50 | PDOC.PN ---
- Subjective Encounter Start Date: 04/13/18 Encounter Start Time: 13:48 Says she is feeling a little better. Breathing is improved, but not baseline. Still has a little pressure sensation on the chest. Left worse than right. - Objective Resuscitation Status - Order Detail: 04/06/18 02:52 Resuscitation Status Routine Resuscitation Status: FULL: Full Resuscitation Vital Signs & Weight: Vital Signs (12 hours) Temp Pulse Pulse Pulse Resp BP BP 04/13/18 12:00 98.2 F 66 16 04/13/18 10:43 90 91 127/68 119/74 04/13/18 09:15 70 04/13/18 07:05 97.8 F 70 18 04/13/18 04:00 97.9 F 99 18 BP BP Pulse Ox Pulse Ox Pulse Ox 04/13/18 12:00 110/69 97 04/13/18 10:43 99 98 04/13/18 09:15 04/13/18 07:05 117/76 97 04/13/18 04:00 104/72 95 Weight Weight 200 lb 9.6 oz I&O: 04/12/18 04/13/18 04/14/18 06:59 06:59 06:59 Intake Total 1533 700 360 Output Total 980 850 Balance 553 -150 360 Result Diagrams: 04/13/18 04:54 04/13/18 04:54 Phys Exam - Physical Examination Constitutional: NAD Sitting up in chair. Just out of the shower. Respiratory: no wheezing, no rhonchi Left basilar rales. Cardiovascular: RRR, no significant murmur, no rub LifeVest on. Gastrointestinal: soft, non-tender, no distention, positive bowel sounds Musculoskeletal: no edema Psychiatric: normal affect, A&O x 3 Dx/Plan (1) Acute systolic CHF (congestive heart failure), NYHA class 4 Code(s): I50.21 - ACUTE SYSTOLIC (CONGESTIVE) HEART FAILURE Status: Acute Comment: will continue IV furosemide. (2) Pancytopenia Code(s): D61.818 - OTHER PANCYTOPENIA Status: Acute (3) Acute on chronic kidney failure Code(s): N17.9 - ACUTE KIDNEY FAILURE, UNSPECIFIED; N18.9 - CHRONIC KIDNEY DISEASE, UNSPECIFIED Status: Acute (4) CKD (chronic kidney disease), stage III Code(s): N18.3 - CHRONIC KIDNEY DISEASE, STAGE 3 (MODERATE) Status: Acute (5) Lymphoma in remission Code(s): C85.90 - NON-HODGKIN LYMPHOMA, UNSPECIFIED, UNSPECIFIED SITE Status: Acute - Plan * Mild persistent pulm edema. IV lasix today and resuming the oral lasix in am. * Chronic pancytopenia secondary to chemo for B-cell Lymphoma. Avoiding anticoagulants secondary to the thrombocytopenia. * Renal function in normal range. * Hope to have her ready for discharge as early as tomorrow.
[2018-04-13] MEDS: Zonisamide 100 MG CAP PO SCH (20:50)
[2018-04-14] MEDS: Guaifenesin DM 100-10/5 ML UDCUP PO PRN (05:11)
[2018-04-14 05:40] LABS: Digoxin 0.75 ng/mL (0.8-2.0)
[2018-04-14 07:23] LABS: Anion Gap 15 mmol/L (10-20); BUN (Urea Nitrogen) 17 mg/dL (9.8-20.1); Calc. Creatinine Clearance 89 mL/min (70-130); Calcium 8.5 mg/dL (7.8-10.44); Carbon Dioxide 29 mmol/L (23-31); Chloride 93 mmol/L (98-107); Estimated GFR-MDRD 64; Glucose 90 mg/dL (80-115); Potassium 3.5 mmol/L (3.5-5.1); Sodium 133 mmol/L (136-145)
[2018-04-14 08:19] LABS: Band 24 % (5-11); Eosinophils 1 % (0-10); Hemoglobin 11.3 g/dL (12.0-16.0); Lymphocytes 16 % (21-51); MDiff Complete? YES; Mean Corpuscular HGB CONC 32.3 g/dL (32.0-36.0); Mean Corpuscular Hemoglobin 30.7 pg (27.0-31.0); Mean Corpuscular Volume 95.2 fL (78.0-98.0); Mean Platelet Volume 11.7 fL (7.4-10.4); Metamyelocyte 1 % (0-0); Monocytes 13 % (0-10); Neutrophil 45 % (42-75); PLT Morphology Comment Appears Decreased; Platelet Count 41 thou/uL (130-400); RBC Distribution Width 13.1 % (11.5-14.5); Red Blood Cell (RBC) Count 3.68 mill/uL (4.20-5.40); White Blood Cell (WBC) Count 2.3 thou/uL (4.8-10.8)
[2018-04-14] MEDS: Furosemide 40 MG TAB PO SCH (08:39)
[2018-04-14] MEDS: Aspirin 325 MG TAB PO SCH (08:39)
[2018-04-14] MEDS: Digoxin 0.25 MG TAB PO SCH (08:39)
[2018-04-14] MEDS: Metoprolol Tartrate 25 MG TAB PO SCH (08:39)
--- NOTE | 2018-04-14 11:22 | RAD ---
PA AND LATERAL VIEWS OF CHEST: Date: 04/14/18 HISTORY: Left basilar rales. FINDINGS/IMPRESSION: Comparison made with exam of 04/07/18. Changes of median sternotomy again seen. Right-sided Port-A-Cath remains in place. There is a moderat e size right pleural effusion with interval increase in size since the last exam. There is pulmonary vascular congestion. There is interval improvement in aeration of the left lung. Mild atelectatic ana nges at the left lung base are noted. No pneumothoraces are seen. POS: [facility]
[2018-04-14 13:00] VITALS: BP 113/62; TEMP 99.3
[2018-04-14] MEDS: Topiramate 100 MG TAB PO SCH ×2 (13:04→15:56)
[2018-04-14 14:13] LABS: Bilirubin Negative (Negative); Blood, Urine Trace (Negative); Clarity CLEAR (Clear); Glucose, Urine (Dipstick) Negative (Negative); Leukocyte Small (Negative); Nitrite Negative (Negative); Protein, Urine (Dipstick) Negative (Neg-Trace); Urobilinogen 0.2 mg/dL (0.2-1.0); pH, Urine 6.5 (5.0-9.0)
[2018-04-14 14:15] LABS: Bacteria/HPF 1+ HPF (None Seen); Hyaline Casts/LPF 0-3 HYALINE CAST LPF (0-3 Hyaline); RBC/HPF 0-3 HPF (0-3); Squamous Epithelial 0-3 HPF (0-3)
[2018-04-14 14:20] LABS: Specific Gravity, Urine 1.004 (1.002-1.036)
--- NOTE | 2018-04-15 00:56 | DIS ---
DATE OF ADMISSION: 04/05/2018 DATE OF DISCHARGE: 04/14/2018 DISCHARGE DIAGNOSES: 1. Decompensated systolic congestive heart failure. 2. Cardiomyopathy with ejection fraction of 15% to 20%. 3. Acute hypoxic respiratory failure. 4. Acute on chronic renal failure, stage 4. 5. Atrial fibrillation with rapid response. 6. Hypotension. 7. Medication noncompliance. 8. History of hypertension. 9. History of seizure disorder. 10. Stage IV non-Hodgkin's lymphoma. 11. History of breast cancer. 12. History of brain metastases requiring surgical removal. HISTORY OF PRESENT ILLNESS: This patient is a 67-year-old female with some cardiac history following up with Dr. Choe. The patient had known atrial fibrillation, but had some issues continuing on medications. The patient has 13 different medications listed as her allergy list. She had previously been on amiodarone briefly in the past, had aortic valve replacement in April of 2017 and had not been on it since that time. The patient presented via the emergency department with complaints of severe fatigue, weakness, and shortness of breath. The patient was originally noted to be in atrial fibrillation with rapid ventricular response and to be substantially hypotensive. She also had worsening BUN and creatinine above her baseline. Her initial chest x-ray showed enlarging bilateral pleural effusions with some vascular congestion. HOSPITAL COURSE: The patient was admitted to the ICU. She was seen in consultation by Pulmonary Critical Care, Cardiology, and Nephrology. The patient's Entresto was discontinued because of her hypotension. She was initially started on amiodarone. This was changed to digoxin and the patient regained good rate control in sinus rhythm. Anticoagulants were deferred given her significant thrombocytopenia, which is chronic related to her prior comorbidities and the fact that she had had the prior brain surgeries for tumor extraction. She underwent an echocardiogram, which revealed an ejection fraction of 15% to 20%, bioprosthetic valve with severe aortic stenosis and moderate aortic insufficiency and severe tricuspid regurgitation and moderate pulmonary regurgitation and mitral regurgitation. The patient's renal function improved back to baseline. Over the following several days, her respiratory status improved with aggressive diuresis. She was seen in consultation by Fernanda Cisneros of oncology service and recommended avoidance of anticoagulants due to her thrombocytopenia as well. The patient was ultimately at the point, where she was functional without any supplemental oxygen and her oxygen saturation levels were adequate. She did report some cough, but followup chest x-ray revealed persistent right pleural effusion but atelectasis developing on the left. PHYSICAL EXAMINATION: VITAL SIGNS: On the day of discharge, temperature was 99.3, pulse 69, respirations 20, O2 saturation 94% on room air, and BP was 113/62. GENERAL: She was awake, alert, oriented, pleasant, and cooperative. HEART: Regular without murmurs. LUNGS: Revealed left basilar rales that were prominent. ABDOMEN: Soft, nontender, and nondistended. Positive bowel sounds. No masses. No organomegaly. EXTREMITIES: No cyanosis, clubbing, or edema. LABORATORY DATA: Notable for a white count of 2.3, hemoglobin 11.3, platelets 41. The patient was seen on the day of discharge by Cardiology, who felt the patient was stable for discharge to home. I discussed the situation with the patient. She said she was encouraged by all of her family members to pursue rehab. However, she was adamant that she was not interested in pursuing rehab, because she wanted to go home to her new apartment. She felt confident that she was going to be able to function at home without any supplemental oxygen and indicated she had family members coming today. With that, the patient was felt to be stable for discharge to home. DISPOSITION: The patient was discharged to home. DISCHARGE MEDICATIONS: She will be on, 1. Digoxin 0.25 mg p.o. daily. 2. Metoprolol 12.5 mg one p.o. b.i.d. She will continue with her other home medications including, 1. Aspirin 325 daily. 2. Topamax 100 mg t.i.d. 3. Zonegran 100 mg four p.o. at bedtime. 4. Doxycycline 100 b.i.d. 5. Esomeprazole 20 mg daily. 6. Lasix 40 mg daily. FOLLOWUP: She is to follow up with cardiac rehab, her primary doctor, Francisca Engle, Dr. Samy Brown, and Dr. Zee. ACTIVITY LEVEL: As tolerated. DIET: She will be on a heart-healthy diet. She should return to the emergency department should she have any problems prior to that time. Job ID: [id number]
--- NOTE | 2018-04-16 06:08 | EKG ---
Test Reason : STAT CP Blood Pressure : / mmHG Vent. Rate : 085 BPM Atrial Rate : 081 BPM P-R Int : 000 ms QRS Dur : 078 ms QT Int : 314 ms P-R-T Axes : 000 -06 130 degrees QTc Int : 373 ms Atrial fibrillation Anteroseptal infarct (cited on or before 04-AUG-2015) Abnormal ECG When compared with ECG of 05-APR-2018 19:09, Vent. rate has decreased BY 64 BPM Nonspecific T wave abnormality, worse in Anterolateral leads Confirmed by MARIA ELENA FREEMAN ([id number]) on 04/16/2018 6:07:53 AM Referred By: Yaniv RODRIGUEZ Confirmed By:MARIA ELENA FREEMAN
== END 2018-04-14 18:18 | disposition home or self-care (01) | DRG 291 ==
LOC: ERS 16:31 → IMCU/EMU 23:07 → 2NO 04-09 15:23
PROVIDERS: ADMIT Internal Medicine; ATTEND Internal Medicine
PROC: B24BZZZ Ultrasonography of Heart with Aorta (ICD-10-PCS; principal; 2018-04-07)
DX: I13.0 Hypertensive heart and chronic kidney disease with heart failure and stage 1 through stage 4 chronic kidney disease, or unspecified chronic kidney disease (principal); I50.43 Acute on chronic combined systolic (congestive) and diastolic (congestive) heart failure; J96.01 Acute respiratory failure with hypoxia; N18.4 Chronic kidney disease, stage 4 (severe); N17.9 Acute kidney failure, unspecified; I48.91 Unspecified atrial fibrillation; R56.9 Unspecified convulsions; Z85.3 Personal history of malignant neoplasm of breast; Z85.72 Personal history of non-Hodgkin lymphomas; Z79.01 Long term (current) use of anticoagulants; Z95.2 Presence of prosthetic heart valve; Z91.14 Patient's other noncompliance with medication regimen; E89.0 Postprocedural hypothyroidism; Z79.82 Long term (current) use of aspirin; I95.9 Hypotension, unspecified; I43 Cardiomyopathy in diseases classified elsewhere; Z85.841 Personal history of malignant neoplasm of brain; D64.9 Anemia, unspecified; K21.9 Gastro-esophageal reflux disease without esophagitis; D69.59 Other secondary thrombocytopenia; Z88.1 Allergy status to other antibiotic agents; Z88.8 Allergy status to other drugs, medicaments and biological substances
CPT/HCPCS: 36415; 36416; 71045; 71046; 74019; 80048; 80053; 80069; 80076; 80162; 81003; 81015; 82550; 82553; 82805; 83605; 83690; 83735; 83880; 84443; 84484; 85025; 85379; 85610; 85730; 87040; 87804; 93005; 93010; 93306; 93798; 94660; 96365; 96366; 96367; 96368; 96372; 96375; J0282; J1160; J1250; J1644; J1650; J1940; J2550; J3370; J3490; J7070; Q0162; S0028

== ENCOUNTER 2018-05-25 00:13 | Inpatient (IN) | payer MEDICARE, BC ==
[2018-05-25] MEDS ORDERED: Magnesium 2 GM/50 ML BAG (IN WATER) ONE (00:36)
[2018-05-25] MEDS ORDERED: Aspirin Chewable 81 MG TAB ONE (00:37)
[2018-05-25 00:55] LABS: Phosphorus 3.3 mg/dL (2.3-4.7)
[2018-05-25 00:56] LABS: #Lymphocytes 0.3 thou/uL (1.20-3.40); #Monocytes 0.4 thou/uL (0.11-0.59); #Neutrophils 4.9 thou/uL (1.40-6.50); %Basophils 0.8 % (0.0-1.0); %Eosinophils 0.6 % (0.0-10.0); %Lymphocytes 4.6 % (21.0-51.0); %Monocytes 7.7 % (0.0-10.0); %Neutrophils 86.3 % (42.0-75.0); Hemoglobin 13.1 g/dL (12.0-16.0); Mean Corpuscular HGB CONC 32.8 g/dL (32.0-36.0); Mean Corpuscular Hemoglobin 30.1 pg (27.0-31.0); Mean Corpuscular Volume 91.7 fL (78.0-98.0); Mean Platelet Volume 10.6 fL (7.4-10.4); Platelet Count 82 thou/uL (130-400); Platelet Morphology Comment Appears Decreased; RBC Distribution Width 13.2 % (11.5-14.5); Red Blood Cell (RBC) Count 4.37 mill/uL (4.20-5.40); White Blood Cell (WBC) Count 5.7 thou/uL (4.8-10.8)
[2018-05-25 01:01] LABS: ALT (SGPT) 11 U/L (8-55); AST (SGOT) 19 U/L (5-34); Alkaline Phosphatase 86 U/L (40-150); Anion Gap 17 mmol/L (10-20); BUN (Urea Nitrogen) 20 mg/dL (9.8-20.1); Bilirubin, Total 0.4 mg/dL (0.2-1.2); CK (CPK) 32 U/L (29-168); Calc. Creatinine Clearance 0 mL/min (70-130); Carbon Dioxide 19 mmol/L (23-31); Chloride 106 mmol/L (98-107); Estimated GFR-MDRD 43; Globulin 4.1 g/dL (2.4-3.5); Glucose 160 mg/dL (80-115); Magnesium 1.9 mg/dL (1.6-2.6); Potassium 3.5 mmol/L (3.5-5.1); Protein, Total 8.1 g/dL (6.0-8.3); Sodium 138 mmol/L (136-145)
[2018-05-25] MEDS ORDERED: Sodium Chloride 0.9% 1,000 ML IV SCH (03:15)
[2018-05-25 04:58] VITALS: BMI 32.8
[2018-05-25 07:14] LABS: Troponin I 0.051 ng/mL (< 0.028)
--- NOTE | 2018-05-25 08:20 | RAD ---
FRONTAL RADIOGRAPH CHEST: DATE: 05/25/2018. COMPARISON: 04/07/2018. HISTORY: Chest pain. FINDINGS: CT injectable right-sided Port-A-Cath present. The patient is imaged in a lordotic position. [place] e sternotomy wires and prominence of cardiac silhouette noted. No pneumothorax, lobar consolidation, or alveolar edema. IMPRESSION: No focal consolidation or alveolar edema. POS: [facility]
[2018-05-25] MEDS ORDERED: Ondansetron ODT 4 MG TAB PO PRN (10:18)
[2018-05-25] MEDS ORDERED: Ondansetron PF 4 MG/2 ML Vial IVP PRN (10:18)
[2018-05-25] MEDS ORDERED: Ergocalciferol 1.25 MG(50,000 UNITS) CAP PO SCH (10:30)
--- NOTE | 2018-05-25 11:33 | HP ---
PRIMARY CARE PROVIDER: Francisca Engle MD PRIMARY UROLOGIST: Samy Brown MD CHIEF COMPLAINT: Arrhythmia. HISTORY OF PRESENT ILLNESS: This is a 67-year-old female, who presents to [facility] Emergency Department after apparent discharge of her LifeVest. The patient was recently admitted in March 2018 and noted with ischemic cardiomyopathy and decompensated systolic congestive heart failure with ejection fraction of 15% to 20%. The patient was placed on LifeVest therapy and discharged home. The patient states she has been compliant with wearing a LifeVest and apparently was notified by the flight engineer performance qualified that it had discharged. The patient has no recollection of an actual discharge or firing of LifeVest and states she was seated at home working on a project. The patient denied any chest pain, shortness of breath, or blacking out. The patient states she was told to assess the vest for activation and noted that the blue gel had activated. The patient denied any unilateral weakness, difficulty with speech, chest pressure, or cough. Cardiology on-call was notified of the LifeVest discharge with an apparent torsades arrhythmia noted. The patient was given defibrillation with return to sinus mechanism. The patient currently states she has no specific symptoms and feels fine. In the emergency room, the patient received 2 g of magnesium sulfate and in addition to aspirin 324 mg. PAST MEDICAL HISTORY: 1. Chronic systolic congestive heart failure with ejection fraction 15% to 20%. 2. Cardiomyopathy with ejection fraction 15% to 20%. 3. Chronic kidney disease, stage 4. 4. Atrial fibrillation with rapid ventricular response on no anticoagulation due to thrombocytopenia. 5. History of medication noncompliance. 6. Hypertension. 7. Seizure disorder. 8. Stage IV non-Hodgkin's lymphoma. 9. History of breast cancer. 10. History of astrocytoma, status post resection x2. 11. Severe aortic stenosis, status post bioprosthetic aortic valve replacement. 12. Chronic thrombocytopenia. PAST SURGICAL HISTORY: 1. Status post astrocytoma resection of the brain. 2. Status post partial thyroidectomy. 3. Status post right subclavian MediPort placement. 4. Status post right breast biopsy. 5. Status post bioprosthetic aortic valve replacement. CURRENT MEDICATIONS: 1. Aspirin 325 mg p.o. daily. 2. Vitamin D2 of 50,000 units p.o. daily. 3. Lasix 40 mg p.o. daily. 4. Toprol-XL 25 mg p.o. daily. 5. Topamax 100 mg p.o. t.i.d. 6. Zonisamide 400 mg p.o. at bedtime. 7. Digoxin 0.25 mg p.o. daily. 8. Zofran 4 mg p.o. q.6 hours p.r.n. nausea, vomiting. ALLERGIES: EXTENSIVE LIST, PLEASE SEE PREVIOUS DICTATION INCLUDED IN THE LIST AMIODARONE CAUSING JOINT SWELLING. FAMILY HISTORY: No inheritable disease per the patient report. SOCIAL HISTORY: The patient resides in [place], [place]. Lives independently. Continues to drive. No current alcohol, tobacco, or illicit drug use. Ambulates with a cane. REVIEW OF SYSTEMS: CONSTITUTIONAL: Negative for weight loss or gain, ability to conduct usual activities. SKIN: Negative for rash, itching. EYES: Negative for double vision, pain. ENT/MOUTH: Negative for nose bleeding, neck stiffness, pain, tenderness. CARDIOVASCULAR: Negative for palpitations, dyspnea on exertion, orthopnea. RESPIRATORY: Negative for shortness of breath, wheezing, cough, hemoptysis, fever or night sweats. GASTROINTESTINAL: Negative for poor appetite, abdominal pain, heartburn, nausea, vomiting, constipation, or diarrhea. GENITOURINARY: Negative for urgency, frequency, dysuria, nocturia. MUSCULOSKELETAL: Negative for pain, swelling. NEUROLOGIC/PSYCHIATRIC: Negative for anxiety, depression. ALLERGY/IMMUNOLOGIC: Negative for skin rash, bleeding tendency. Otherwise, negative except as stated per HPI. PHYSICAL EXAMINATION: VITAL SIGNS: On admission; blood pressure 137/62, pulse 72, respiratory rate is 20, temperature 97.4 degrees Fahrenheit, and O2 saturation 98% on room air. GENERAL APPEARANCE: This is a 67-year-old female, alert and oriented x3, pleasant, conversant, smiling, in no acute distress. HEENT: Pupils are equal, round, and reactive to light and accommodation. Extraocular muscles are intact. No scleral icterus. No conjunctival injection. Nares patent. OP is clear. Teeth in good repair. NECK: Supple. No cervical adenopathy. No thyromegaly. No carotid bruits. No JVD appreciated. Cervical spinal, full active and passive range of motion. No meningeal signs noted. CHEST: Lungs are clear to auscultation bilaterally. CARDIOVASCULAR: S1 and S2 with a 3 to 4/6 systolic ejection murmur heard throughout the precordium. ABDOMEN: Obese, soft, nontender, and nondistended. Bowel sounds are positive in all 4 quadrants. There is no hepatosplenomegaly. No abdominal bruits. No rebound or guarding appreciated. EXTREMITIES: Warm and dry with fair turgor. No clubbing, cyanosis, or asymmetric edema appreciated. Pulses are palpable distally at the dorsalis pedis, posterior tibial, and popliteal arteries bilaterally. Capillary refill less than 2 seconds. NEUROLOGIC: Cranial nerves II through XII are grossly intact. No focal or lateralizing signs appreciated. PERTINENT LABORATORY AND X-RAY FINDINGS: Sodium 138, potassium 3.5, chloride 106, CO2 of 19, BUN 20, creatinine 1.25, estimated GFR of 43, glucose 160, calcium 9.0, phosphorus 3.3, and magnesium 1.9. LFTs within normal limits. Troponin I ranged between 0.025 to 0.051. BNP 1138, previously noted 4215 on 04/05/2018. CBC showed a white blood cell count of 5.7, hemoglobin 13, hematocrit 40, and platelet count 82 with 86% neutrophils. Portable chest x-ray dated 05/25/2018, showed no acute cardiopulmonary process. 2D transthoracic echocardiogram dated 04/07/2018, showed ejection fraction 15% to 20%. Moderate right atrial enlargement. Moderate mitral valve regurgitation. Bioprosthetic aortic valve with severe aortic stenosis noted. Severe tricuspid valve regurgitation. EKG dated 05/25/2018, by my interpretation shows a sinus mechanism with frequent PVCs. Heart rates in the 70s. Attenuated R-waves noted in the precordial leads. Normal axis. ASSESSMENT AND PLAN: 1. Torsades de pointes. The patient will be admitted to the telemetry unit. We will consult Cardiology Service for further evaluation and consideration for medical therapy. 2. Status post defibrillator discharge with termination of torsades. Magnesium and potassium levels within normal limits. We will repeat magnesium level in the a.m. Continue LifeVest currently. The patient remains at high risk for recurrence given cardiomyopathy with depressed ejection fraction. 3. Ischemic cardiomyopathy with ejection fraction of 15% to 20%. Continue supportive management. Resume digoxin at 0.25 mg daily. Continue aspirin 325 mg daily. 4. Chronic kidney disease, stage 3. Avoid nephrotoxic agents and limit contrast exposure. Repeat creatinine in the a.m. 5. Demand ischemia. Elevated troponin I secondarily to demand ischemia and external defibrillator discharge. Continue supportive management. See above. 6. Chronic systolic congestive heart failure. Stable currently and compensated. Continue medical management. 7. Prophylaxis. SCDs while in bed. Pepcid 20 mg p.o. b.i.d. 8. Code status: Full. Surrogate medical decision maker is the patient's sister. Job ID: [id number]
[2018-05-25] MEDS: Topiramate 100 MG TAB PO SCH ×2 (12:21→19:40)
[2018-05-25] MEDS: ASPIRIN 325 MG TAB PO SCH (12:22)
[2018-05-25] MEDS: Furosemide 40 MG TAB PO SCH (12:24)
[2018-05-25] MEDS: DIGOXIN 0.25 MG PO SCH (12:24)
[2018-05-25] MEDS ORDERED: Potassium Chloride 10 MEQ TAB PO SCH (13:30)
[2018-05-25] MEDS ORDERED: Topiramate 100 MG TAB PO SCH (15:00)
--- NOTE | 2018-05-25 16:11 | CON ---
DATE OF CONSULTATION: HISTORY OF PRESENT ILLNESS: Juan Ramsey is a 67-year-old female with complicated past medical history. She has been cared for by Dr. Zen Bird and Dr. Boubacar Choe, with Dr. Choe then wishing to sever the relationship due to the patient's noncompliance with her medications. She has had atrial fibrillation in the past and was on amiodarone several years ago. Most recently in April 2017, she underwent aortic valve replacement at [facility] in [place] for severe aortic insufficiency. She does not think there were any bypasses performed. She has not been on amiodarone since way before aortic valve replacement. She stopped taking it due to joint pain. She was placed on Entresto and furosemide after her heart surgery. She then presented with complaint of shortness of breath, which increases with any activity. She denied any chest discomfort. She also noted increasing leg edema. On admission, she was found to be in atrial fibrillation with fast ventricular response. Also, her creatinine was 2.20, and the Entresto was stopped. She was diuresed, placed on digoxin for better rate control. Echocardiogram during that admission revealed moderate left ventricular enlargement, severe left ventricular dysfunction with ejection fraction of 15% to 20%, mildly enlarged right ventricle, moderately enlarged left atrium, and moderately enlarged right atrium. There were mitral annular calcification and moderate mitral regurgitation. There was a bioprosthetic aortic valve with severe aortic stenosis with peak gradient of 46 mm, mean gradient of 31 mm. There was moderate aortic insufficiency. There were severe tricuspid regurgitation and moderate pulmonic regurgitation. Her rate eventually was controlled and she also was placed on low-dose metoprolol for better rate control. She does have an appointment to see Dr. Zee at [facility] in [place] on June 08. Ms. Ramsey was not able to recount what happened last night, but LifeVest called my partner, Dr. Hale, who was on-call and at approximately 10:27 on May 25 , she went into torsade. Shock was then delivered and she returned to sinus rhythm. She has been in sinus rhythm during this hospitalization since that time. During the last admission, there was concern about the anticoagulation with her severe thrombocytopenia as well as resection of brain tumor x2. However, she is back in sinus rhythm at the present time after being defibrillated last night. PAST MEDICAL HISTORY: Stage 4 non-Hodgkin lymphoma, right breast cancer, brain tumor removal x2, hypertension, history of seizure disorder, and history of severe aortic insufficiency. PAST SURGICAL HISTORY: Removal of brain tumor in the 1970s and then repeat brain surgery in 2009. The last surgery was for a low-grade astrocytoma. Partial thyroidectomy and aortic valve replacement in April 2017. MEDICATIONS: 1. Aspirin 325 daily. 2. Digoxin 0.25 daily. 3. Furosemide 40 mg q.a.m. 4. Metoprolol 25 XL daily. 5. Zofran p.r.n. 6. Topiramate 100 mg t.i.d. 7. Zonisamide 400 mg at bedtime. ALLERGIES: AMIODARONE, AMITRIPTYLINE, AMOXICILLIN, ELIQUIS, CARVEDILOL, CIPRO, KEPPRA, LIDOCAINE, LITHIUM, PENICILLIN, PHENYLEPHRINE, XARELTO, AND BENADRYL. SOCIAL HISTORY: She does not smoke or drink. FAMILY HISTORY: Negative for coronary artery disease. REVIEW OF SYSTEMS: A 12-point review of systems unremarkable. PHYSICAL EXAMINATION: VITAL SIGNS: Blood pressure 133/83, pulse of 76 and sinus rhythm on the monitor. HEENT: PERRL. NECK: Supple. CHEST: Clear. CARDIAC: S1 and S2 normal without any S3 or S4. There is a 2/6 systolic murmur in the aortic area. ABDOMEN: Normal bowel sounds without tenderness or organomegaly. EXTREMITIES: Revealed no clubbing, cyanosis, or edema. NEUROLOGIC: Grossly intact. SKIN: Warm and dry. LABORATORY DATA: EKG on admission revealed normal sinus rhythm with frequent PVCs, possible anterior and inferior infarction. Hemoglobin 13.1, hematocrit 40.0, white count 5700, and platelets 82,000. Sodium 138, potassium 3.5, chloride 106, carbon dioxide 19, BUN 20, and creatinine 1.25. Troponin I 0.040 and BNP 1138.0. IMPRESSION: 1. Torsades de pointes, successfully defibrillated by the external defibrillator. Her potassium was borderline low and she will be placed on daily potassium. With her ejection fraction of 15% to 20% and now the finding of torsades, she needs to have a defibrillator placed on this admission. 2. Severe nonischemic cardiomyopathy with ejection fraction of 15% to 20% on last admission. 3. Status post bioprosthetic aortic valve replacement. On last echo, she had severe aortic stenosis and moderate aortic insufficiency. She has an appointment to see her gum remover in [place] in 2 weeks. 4. Atrial fibrillation with fast ventricular response during her last admission. Since she was defibrillated, she now is back in sinus rhythm. Also, her blood pressure is much better than what it was when she was in sinus rhythm. Her beta marielena may be able to be further increased. 5. Brain tumor resection x2. 6. Severe thrombocytopenia. 7. Stage 4 Hodgkin lymphoma in remission. 8. Right breast cancer. 9. Noncompliance. 10. Hypertension. 11. History of seizure disorder. 12. Anxiety. 13. Acute kidney injury from Entresto during last admission. However, her creatinine has fallen from 2.20 down to 0.84 on the last admission. Currently on the furosemide, her creatinine is 1.25. PLAN: The patient will be started on potassium 10 mEq daily. Digoxin level will be checked. Electrophysiology will be consulted for probable ICD placement. Job ID: [id number] MTDD
[2018-05-25] MEDS ORDERED: Zonisamide 100 MG CAP PO SCH (21:00)
[2018-05-25] MEDS: ZONISAMIDE 100MG CAP PO SCH (22:21)
--- NOTE | 2018-05-26 00:26 | CON ---
DATE OF CONSULTATION: 05/25/2018 ELECTROPHYSIOLOGY CONSULTATION REASON FOR CONSULTATION: LifeVest discharge, ventricular tachycardia. HISTORY OF PRESENT ILLNESS: Ms. Ramsey is a 67-year-old woman with a complicated past medical history. She had been cared for by both Dr. Bird and Dr. Choe in the past. However, care with Dr. Choe was severed due to patient's noncompliance with medications. She is now followed by Dr. Brown since approximately March of 2018. She has a past medical history significant for open aortic valve replacement in April 2017 with transient amiodarone therapy, which has long since been discontinued. She reportedly stopped taking amiodarone due to joint pain. She also has a known history of atrial fibrillation, thus the amiodarone and was largely on rate control. Due to chronic thrombocytopenia related to prior lymphoma, she has been unable to be safely anticoagulated. We have discussed Watchman placement with her, even on low-dose Eliquis. She has not been agreeable to considering this in the past. She was last seen in our clinic in October 2017, largely for atrial fibrillation and anticoagulation management. In March of last year, she was admitted for atrial fibrillation with RVR and was also found to have severely reduced ejection fraction of 15% to 20%. She was discharged with a LifeVest in place, and on May 25 at 1030 at night, she went into torsades and a shock was delivered. She returned to sinus rhythm. During this time, she was awake and working on a project at her desk. She did feel somewhat disoriented and dizzy, but was completely unaware of any shock or defibrillation received until she was informed by [facility] that this had occurred. She then presented to the emergency room for further evaluation. She was given 2 g of magnesium and admitted for further evaluation and monitoring. Since admission, she has been in sinus rhythm. Ms. Ramsey is currently feeling well. She denies any heart racing, palpitations, chest pain, pressure, syncope, near syncope, stroke, stroke-like symptoms, or perceived defibrillations or shocks from her [facility], LifeVest as mentioned above. REVIEW OF SYSTEMS: A 12-point review of systems was conducted and is unremarkable except that is listed above in HPI. PAST MEDICAL HISTORY: 1. Persistent atrial fibrillation. a. Declining anticoagulation due to mild thrombocytopenia. b. Previously suppressed with Cordarone and digoxin. 2. Cardiomyopathy, acute on chronic diastolic heart failure, mildly reduced ejection fraction of 50% in April 2017, most recently 15% to 20% in March of 2018. 3. Valvular heart disease, status post open tissue AVR in April of 2017 due to severe aortic regurgitation. 4. Coronary artery disease, risk factors include hypertension and obesity. 5. Chronic thrombocytopenia attributed to prior lymphoma, which Hematology has discouraged anticoagulation. 6. Seizures. 7. Acid reflux disease. 8. Hypertension. 9. History of brain tumor with subsequent surgery. 10. Thyroid surgery. 11. Lymphoma/cancer with port insertion. 12. Renal disease. 13. Hypokalemia. 14. Pancytopenia. 15. Hyponatremia. ALLERGIES: LISTED ALLERGIES AND/OR INTOLERANCES INCLUDE, 1. AMIODARONE. 2. AMITRIPTYLINE. 3. AMOXICILLIN. 4. APIXABAN. 5. CARVEDILOL. 6. CIPROFLOXACIN. 7. LEVETIRACETAM. 8. LIDOCAINE. 9. LITHIUM. 10. PENICILLIN. 11. PHENYLEPHRINE. 12. RIVAROXABAN. 13. DIPHENHYDRAMINE. HOME MEDICATIONS: Include, 1. Vitamin D 50,000 units every month. 2. Metoprolol succinate 25 mg p.o. daily. 3. Furosemide 40 mg daily. 4. Digoxin 0.25 mg daily. 5. Aspirin 325 mg daily. 6. Zonisamide 400 mg at bedtime. 7. Topiramate 100 mg p.o. t.i.d. 8. Zofran 4 mg p.o. q.6 hours p.r.n. nausea. FAMILY HISTORY: Negative for CAD or sudden cardiac . SOCIAL HISTORY: Negative for tobacco, alcohol, or illicit drug use. PHYSICAL EXAMINATION: VITAL SIGNS: Most recent vital signs, temperature 97.8, pulse 75, blood pressure 118/78, respirations 22, oxygen is 95% on room air. GENERAL: The patient is alert and oriented. Speech is clear. Affect is appropriate. She is an adequate historian. She is in no apparent distress. NECK: Supple without jugular venous distention. Thyroid is nonpalpable. LUNGS: Clear to auscultation bilaterally. Respirations are even and nonlabored. HEART: Heart rate is regularly regular, but with frequent ventricular ectopy. PMI is nondisplaced. ABDOMEN: Soft and nontender without palpable masses. Hepatojugular reflux is negative. EXTREMITIES: Warm and dry to touch without clubbing, cyanosis, or edema. NEUROLOGIC: Grossly intact. Nonfocal. Gait was not assessed. DATABASE: Telemetry and EKG were all personally reviewed, currently reflects sinus rhythm with frequent premature ventricular complexes report from [facility]. LifeVest was reviewed and shows polymorphic ventricular tachycardia/Torsades de Pointes, successfully terminated with defibrillation and restoring sinus mechanism. LABORATORY DATA: Hematology was reviewed. Hemoglobin 13.1, WBC 5.7, platelet count is 82. Chemistry; potassium 3.5, creatinine 1.25, magnesium 1.9. BNP 1138. Serial troponins are being conducted and so far maximum of 0.051. ALT and AST are within normal limits. IMPRESSION: 1. New polymorphic sustained ventricular tachycardia, status post LifeVest shock which was appropriate and restored sinus rhythm. 2. Chronic heart failure with nonischemic cardiomyopathy, most recent ejection fraction was 15% to 20% by echo in March of 2018. 3. Persistent atrial fibrillation, currently in sinus rhythm. 4. Frequent premature ventricular complexes. 5. History of stage IV non-Hodgkin's lymphoma with chronic thrombocytopenia. 6. History of seizure disorder. 7. History of hypertension. PLAN AND RECOMMENDATIONS: With her spontaneous polymorphic ventricular tachycardia, she would benefit from a dual-chamber ICD implant. A dual-chamber device is appropriate in light of her atrial arrhythmias in addition to preventing bradycardia with her polymorphic VT. We discussed risks, benefits, and alternatives. Risks include pain, swelling, bruising, infection, pneumothorax, hemothorax, possible need for chest tube insertion, and/or CVA surgery. In addition with her low platelet count, we will recheck lab work in the morning. If her platelet count is less than 80,000, an order has been given to transfuse 10 units of platelets to prevent bleeding complications during her device insertion. The patient is agreeable to this as well. For now, we will plan with ICD implant tomorrow afternoon approximately at 2 p.m. pending lab and anesthesia availability. Also, recommend maximizing beta-marielena therapy as tolerated. Thank you for allowing us to participate in the care of this patient. Job ID: [id number]
[2018-05-26 03:38] LABS: Hemoglobin 12.8 g/dL (12.0-16.0); Mean Corpuscular HGB CONC 32.8 g/dL (32.0-36.0); Mean Corpuscular Hemoglobin 30.4 pg (27.0-31.0); Mean Corpuscular Volume 92.8 fL (78.0-98.0); Mean Platelet Volume 8.5 fL (7.4-10.4); Platelet Count 89 thou/uL (130-400); RBC Distribution Width 13.3 % (11.5-14.5); Red Blood Cell (RBC) Count 4.19 mill/uL (4.20-5.40); White Blood Cell (WBC) Count 3.5 thou/uL (4.8-10.8)
[2018-05-26 03:54] LABS: Anion Gap 13 mmol/L (10-20); BUN (Urea Nitrogen) 13 mg/dL (9.8-20.1); Calc. Creatinine Clearance 81 mL/min (70-130); Calcium 9.1 mg/dL (7.8-10.44); Carbon Dioxide 25 mmol/L (23-31); Chloride 105 mmol/L (98-107); Estimated GFR-MDRD 61; Glucose 98 mg/dL (80-115); Magnesium 2.1 mg/dL (1.6-2.6); Potassium 3.4 mmol/L (3.5-5.1); Sodium 140 mmol/L (136-145)
[2018-05-26 04:12] LABS: Band 5 % (5-11); Lymphocytes 13 % (21-51); MDiff Complete? YES; Monocytes 11 % (0-10); Neutrophil 71 % (42-75)
[2018-05-26 05:28] LABS: Digoxin Less than 0.15 ng/mL (0.8-2.0)
[2018-05-26] MEDS ORDERED: Furosemide 20 MG TAB PO SCH (09:00)
[2018-05-26] MEDS ORDERED: PATIENT'S HOME MEDICATION PO SCH ×2 (09:00)
[2018-05-26] MEDS: ASPIRIN 325 MG TAB PO SCH (09:15)
[2018-05-26] MEDS: Topiramate 100 MG TAB PO SCH ×2 (09:16→15:26)
[2018-05-26] MEDS: DIGOXIN 0.25 MG PO SCH (09:17)
[2018-05-26] MEDS: Furosemide 40 MG TAB PO SCH (09:19)
[2018-05-26] MEDS: Potassium Chloride 10 MEQ TAB PO SCH (09:22)
--- NOTE | 2018-05-26 10:11 | PRG ---
DATE OF SERVICE: SUBJECTIVE: The patient reports that she currently has a headache. She also reports that she has some subtle discomfort in her left sternal area and also is concerned that she may be having some low-grade fever as her temperature was at 98.9. She believes her baseline is typically around 97.2 to 97.6. OBJECTIVE: VITAL SIGNS: Temperature 98.9, pulse 75, respirations 20, O2 saturation 95% on room air, BP 115/69. GENERAL: The patient was asleep. She is easily awakened. She is alert and oriented. HEART: Regular with 1/6 murmur at the left upper sternal border. LUNGS: Clear bilaterally with no wheezes or rales. ABDOMEN: Soft, nontender, and nondistended. Positive bowel sounds. EXTREMITIES: Warm and dry without edema. SKIN: Normal turgor. LABORATORY DATA: White count 3.5, hemoglobin 12.8. Potassium is 3.4. IMPRESSION AND PLAN: 1. Torsades. The patient has history of ischemic cardiomyopathy, had an episode of torsades with a LifeVest discharge. The patient is followed by Cardiology and by EP. She is to have defibrillator placed this afternoon. 2. Ischemic cardiomyopathy with EF of 15% to 20%. 3. History of stage IV non-Hodgkin's lymphoma with some chronic thrombocytopenia. 4. Chronic kidney disease stage 4, stable. 5. Hypokalemia. The patient has regular dose of potassium ordered this morning, which should keep her in the 3.5 or higher range and was striving for. 6. Headache. We will make sure the patient has medications available for that. 7. Subjective fever. The patient actually does not technically have a fever and may be result of her non-Hodgkin's lymphoma. We will check UA for completeness. 8. History of chronic systolic heart failure, appears to be stable and well compensated. 9. Hypertension, stable. Job ID: [id number]
[2018-05-26 14:37] LABS: Bilirubin Negative (Negative); Blood, Urine Negative (Negative); Clarity CLOUDY (Clear); Glucose, Urine (Dipstick) Negative (Negative); Leukocyte Small (Negative); Nitrite Positive (Negative); Protein, Urine (Dipstick) 30 mg/dL (Neg-Trace); Specific Gravity, Urine 1.012 (1.002-1.036); pH, Urine 7.5 (5.0-9.0)
[2018-05-26] MEDS ORDERED: Clindamycin/D5W 900 mg/50 ml Premix Bag ONE (14:41)
[2018-05-26] MEDS ORDERED: Levofloxacin 500 mg/D5W 100 ml Premix Bag ONE (14:41)
[2018-05-26 14:44] LABS: Bacteria/HPF 2+ HPF (None Seen); Hyaline Casts/LPF 4-6 HYALINE CAST LPF (0-3 Hyaline); Pathc Cast-AUWi Flag 0.87 (0-2.49); WBC/HPF 21-50 HPF (0-3)
[2018-05-26] MEDS ORDERED: Bupivacaine 0.25% HCL 30 ML VIAL ONE (14:45)
[2018-05-26] MEDS ORDERED: KETAMINE 100 MG/ML (5ML VIAL) ONE (14:53)
[2018-05-26] MEDS ORDERED: Midazolam HCl 2 mg/2 ml Vial ONE (14:53)
[2018-05-26] MEDS ORDERED: Fentanyl 100 MCG/2 ML VIAL ONE (14:53)
[2018-05-26] MEDS ORDERED: Bupivacaine PF 0.5% 30 ML VIAL ONE (15:25)
[2018-05-26] MEDS: Acetaminophen 500 MG TAB PO PRN (18:13)
[2018-05-26] MEDS ORDERED: Topiramate 100 MG TAB PO SCH (19:00)
[2018-05-26] MEDS: ZONISAMIDE 100MG CAP PO SCH (21:56)
[2018-05-26] MEDS: Clindamycin/D5W 600 MG in Premix Bag 1 BAG IVPB SCH (21:57)
[2018-05-27] MEDS: Acetaminophen 500 MG TAB PO PRN ×2 (00:41→06:34)
[2018-05-27] MEDS: Clindamycin/D5W 600 MG in Premix Bag 1 BAG IVPB SCH (06:34)
[2018-05-27] MEDS ORDERED: Topiramate 100 MG TAB PO SCH (07:00)
[2018-05-27 07:52] VITALS: BP 104/67; TEMP 97.9
--- NOTE | 2018-05-27 08:14 | RAD ---
PORTABLE CHEST ONE VIEW: Date: 05-27-18 Time: 5:49 a.m. History: Post cardiac device placement. FINDINGS/IMPRESSION: Comparison with exam of 05-25-18. There has been interval placement of a left sided pacemaker device with leads in the right atrium and right ventricle. No pneumothoraces are seen. The remainder of the exam is otherwise stable. POS: ELLA
[2018-05-27] MEDS: DIGOXIN 0.25 MG PO SCH (08:38)
[2018-05-27] MEDS: ASPIRIN 325 MG TAB PO SCH (08:39)
[2018-05-27] MEDS: Potassium Chloride 10 MEQ TAB PO SCH (08:40)
[2018-05-27] MEDS: Furosemide 40 MG TAB PO SCH (08:42)
--- NOTE | 2018-05-27 10:35 | EKG ---
Test Reason : Blood Pressure : / mmHG Vent. Rate : 070 BPM Atrial Rate : 070 BPM P-R Int : 142 ms QRS Dur : 090 ms QT Int : 358 ms P-R-T Axes : 025 -19 140 degrees QTc Int : 386 ms Electronic atrial pacemaker Cannot rule out Anterior infarct (cited on or before 04-AUG-2015) Abnormal ECG When compared with ECG of 25-MAY-2018 00:28, (Unconfirmed) T wave inversion less evident in Anterolateral leads QT has shortened Confirmed by DR. Mahsa GREGG ([id number]) on 05/27/2018 10:34:56 AM Referred By: IMELDA Confirmed By:DR. Mahsa GREGG
[2018-05-27] MEDS ORDERED: Clindamycin 150 MG CAP PO SCH (12:00)
--- NOTE | 2018-05-29 04:17 | PRG ---
DATE OF SERVICE: 05/27/2018 SUBJECTIVE: Ms. Ramsey seems to be doing well one day after ICD implant. OBJECTIVE: VITAL SIGNS: Blood pressure 104/67, heart rate 70, respiratory rate is 18, temperature 97.9 degrees Fahrenheit. GENERAL: Alert and oriented woman, in no apparent distress. NECK: Supple. Jugular veins not distended. CHEST: Coarse. No crackles. HEART: Sounds are regular to rate and rhythm. No murmur or gallop. ABDOMEN: Benign. Bowel sounds positive. EXTREMITIES: Lower extremities without edema, clubbing, or cyanosis. SKIN: ICD insertion site without hematoma. DATA: Chest x-ray shows dual-chamber ICD with adequate lead positions. No pneumothorax. ASSESSMENT AND PLAN: 1. Ms. Ramsey is a pleasant 67-year-old woman with history of nonischemic cardiomyopathy, who underwent a dual-chamber implantable cardioverter-defibrillator implant after an episode of ventricular tachycardia documented and treated by her LifeVest. ICD was placed without difficulty. No complication noted. She is stable for discharge. Plan is antibiotic for a week and two weeks for wound check. 2. Single-chamber implantable cardioverter-defibrillator adequate function. No evidence of complication. PLAN: Continue antibiotics for 1 week. Job ID: [id number]
[2018-06-19] MEDS ORDERED: Ergocalciferol 1.25 MG(50,000 UNITS) CAP PO SCH (09:00)
== END 2018-05-27 12:35 | disposition home or self-care (01) | DRG 309 ==
LOC: ERS 00:13 → 2SE 01:48
PROVIDERS: ADMIT Hospitalist; ATTEND Hospitalist
DX: I45.81 Long QT syndrome (principal); I13.0 Hypertensive heart and chronic kidney disease with heart failure and stage 1 through stage 4 chronic kidney disease, or unspecified chronic kidney disease; I50.22 Chronic systolic (congestive) heart failure; N17.9 Acute kidney failure, unspecified; N18.4 Chronic kidney disease, stage 4 (severe); I48.91 Unspecified atrial fibrillation; D49.6 Neoplasm of unspecified behavior of brain; D69.6 Thrombocytopenia, unspecified; Z91.19 Patient's noncompliance with other medical treatment and regimen; F41.9 Anxiety disorder, unspecified; Z85.71 Personal history of Hodgkin lymphoma; I25.10 Atherosclerotic heart disease of native coronary artery without angina pectoris; K21.9 Gastro-esophageal reflux disease without esophagitis; E87.6 Hypokalemia; I25.5 Ischemic cardiomyopathy
CPT/HCPCS: 33249; 36005; 36415; 71045; 75820; 80048; 80053; 80162; 81001; 82550; 83735; 83880; 84100; 84484; 85007; 85025; 85027; 86850; 86900; 86901; 93005; 93010; 96365; J1956; J2250; J3010; J3475; J3490; S0020

== ENCOUNTER 2020-01-07 18:04 | Emergency (ER) | payer MEDICARE, BC ==
[~2020-01-07 18:04] MED LIST changes: +Iopamidol-370 76% 500 ML 1 ML ONE; -PROPOFOL 0 ML ONE; -PROPOFOL 200 MG/20 ML VIAL ONE
[2020-01-07 18:25] LABS: #Eosinphils 0.1 thou/uL (0.0-0.7); #Lymphocytes 0.8 thou/uL (1.20-3.40); #Monocytes 0.4 thou/uL (0.11-0.59); #Neutrophils 4.2 thou/uL (1.40-6.50); %Basophils 0.3 % (0.0-1.0); %Eosinophils 1.2 % (0.0-10.0); %Neutrophils 75.6 % (42.0-75.0); Hemoglobin 12.5 g/dL (12.0-16.0); Mean Corpuscular HGB CONC 32.4 g/dL (32.0-36.0); Mean Corpuscular Hemoglobin 28.2 pg (27.0-31.0); Mean Corpuscular Volume 87.1 fL (78.0-98.0); Mean Platelet Volume 11.7 fL (7.4-10.4); Platelet Count 53 thou/uL (130-400); RBC Distribution Width 12.6 % (11.5-14.5); Red Blood Cell (RBC) Count 4.42 mill/uL (4.20-5.40); White Blood Cell (WBC) Count 5.5 thou/uL (4.8-10.8)
--- NOTE | 2020-01-07 18:27 | CT ---
CT Brain WO Con History: Seizure. Altered mental status. Comparison: CT brain 2018 Findings: Old left craniotomy change. Right transfemoral shunt catheter is similar with tip projectin g of the foramen of [place]. No connection to the shunt catheter beyond the reservoir. No hydrocephalus. Globes are intact. Calvarium is intact. Paranasal sinuses and mastoids are clear. No acute hemorrhage or infarct. Cystic encephalomalacia and surgical cavity in the left frontal lobe. No acute hemorrhage or infarct. Impression: Chronic findings. No acute intracranial abnormality. Dr. Corcoran notified of findings via telephone at 6:24 PM
[2020-01-07 18:32] LABS: INR-International Normal Ratio 1.1; Prothrombin Time 14.6 sec (12.0-14.7)
[2020-01-07 18:33] LABS: PTT 34.9 sec (22.9-36.1)
[2020-01-07 18:53] LABS: ALT (SGPT) 15 U/L (8-55); AST (SGOT) 19 U/L (5-34); Albumin 3.6 g/dL (3.4-4.8); Alkaline Phosphatase 74 U/L (40-110); Anion Gap 22 mmol/L (10-20); BUN (Urea Nitrogen) 18 mg/dL (9.8-20.1); Bilirubin, Total 0.4 mg/dL (0.2-1.2); Calc. Creatinine Clearance 0 mL/min (70-130); Calcium 8.8 mg/dL (7.8-10.44); Carbon Dioxide 15 mmol/L (23-31); Chloride 103 mmol/L (98-107); Estimated GFR-MDRD 39; Globulin 3.9 g/dL (2.4-3.5); Glucose 196 mg/dL (80-115); Potassium 3.2 mmol/L (3.5-5.1); Protein, Total 7.5 g/dL (6.0-8.3); Sodium 137 mmol/L (136-145)
--- NOTE | 2020-01-07 18:58 | CT ---
CTA Angio Head W WO Con History: Stroke Comparison: CT brain same day Findings: CT angiogram of the head and neck was performed after the intravenous ministration of contr ast. 3-D rendering provided. Layering moderate right pleural effusion. Mild compressive atelectasis in the right upper lobe. No acute cervical spine abnormality. The transverse aorta is patent. Numerous abnormally enlarged right paratracheal lymph nodes concernin g for malignancy. There are also right axillary and supraclavicular lymph nodes. Absent right lobe of the thyroid. Left supraclavicular lymph nodes are also present. Right common carotid artery is patent. The right internal carotid artery is patent. No hemodynamicall y significant stenosis per NASCET criteria. The left common carotid artery is patent. The left internal carotid artery is patent. No hemodynamica lly significant stenosis per NASCET criteria. Both vertebral arteries are patent with mild left vertebral dominance. Intradural vertebral arteries are patent. Basilar artery is patent. [place] is patent without stenosis, thrombosis nor aneurysm formation. Minimal left distal M 2 narrowing with distal flow anteriorly could be post procedural in nature. Impression: 1. Moderate narrowing distal left M2 branch with peripheral flow presently near to the surgical resec tion cavity. No high-grade occlusion of the [place]. 2. Extensive mediastinal adenopathy, which when discussing the case with the ordering physician, akash pearson is a history of non-Hodgkin's lymphoma. Dr. Corcoran notified of findings via telephone at 6:53 PM
--- NOTE | 2020-01-07 19:11 | RAD ---
XR Chest 1 View Portable History: Altered mental status Comparison: Chest radiograph 2019 Findings: Abnormal fullness of the right perihilar soft tissues. Heart size mildly enlarged. No confl uent airspace consolidation. Small to moderate right layering pleural effusion. Impression: 1. Right hilar adenopathy. 2. Moderate right layering pleural effusion. 3. Moderate cardiomegaly and mild pulmonary venous congestion.
--- NOTE | 2020-01-11 17:11 | CT ---
CTA Angio Head W WO Con History: Stroke Comparison: CT brain same day Findings: CT angiogram of the head and neck was performed after the intravenous ministration of contr ast. 3-D rendering provided. Layering moderate right pleural effusion. Mild compressive atelectasis in the right upper lobe. No acute cervical spine abnormality. The transverse aorta is patent. Numerous abnormally enlarged right paratracheal lymph nodes concernin g for malignancy. There are also right axillary and supraclavicular lymph nodes. Absent right lobe of the thyroid. Left supraclavicular lymph nodes are also present. Right common carotid artery is patent. The right internal carotid artery is patent. No hemodynamicall y significant stenosis per NASCET criteria. The left common carotid artery is patent. The left internal carotid artery is patent. No hemodynamica lly significant stenosis per NASCET criteria. Both vertebral arteries are patent with mild left vertebral dominance. Intradural vertebral arteries are patent. Basilar artery is patent. [place] is patent without stenosis, thrombosis nor aneurysm formation. Minimal left distal M 2 narrowing with distal flow anteriorly could be post procedural in nature. Impression: 1. Moderate narrowing distal left M2 branch with peripheral flow presently near to the surgical resec tion cavity. No high-grade occlusion of the [place]. 2. Extensive mediastinal adenopathy, which when discussing the case with the ordering physician, akash pearson is a history of non-Hodgkin's lymphoma. Dr. Corcoran notified of findings via telephone at 6:53 PM Transcribed Date/Time: 01/11/2020 5:10 PM
== END 2020-01-07 20:40 | disposition home or self-care (01) ==
LOC: ERS 18:04
DX: R56.9 Unspecified convulsions (principal); M19.90 Unspecified osteoarthritis, unspecified site; C85.80 Other specified types of non-Hodgkin lymphoma, unspecified site; I10 Essential (primary) hypertension; I48.91 Unspecified atrial fibrillation; F41.9 Anxiety disorder, unspecified; Z85.3 Personal history of malignant neoplasm of breast
CPT/HCPCS: 36416; 70450; 70496; 70498; 71045; 80053; 82550; 84146; 84484; 85025; 85610; 85730; 93005; Q9967